=== PATIENT | female | born 1955 | race Caucasian/White ===

== ENCOUNTER 2020-03-01 07:26 | Emergency (ER) | payer MEDICARE, SELFPAY ==
--- NOTE | ~2020-03-01 | CT_ITS ---
EXAMINATION: CT brain wo con DATE: 03/01/2020 08:22 INDICATION: Dizziness. Lightheadedness. TECHNIQUE: Computed tomography (CT) of the head was performed without intravenous contrast. The dose- length product was 605.33 mGy-cm. The mA was adjusted according to patient size. Iterative reconstruc tion technique was employed. COMPARISON: CT dated 10/21/2013 FINDINGS: Normal brain parenchymal volume. No ventriculomegaly or midline shift. Basilar cisterns are patent. There is intracranial atherosclerosis. No acute intracranial hemorrhage, infarction, mass or mass effect. Normal smalls-white differentiation. Paranasal sinuses and mastoids are pneumatized. IMPRESSION: 1. No acute intracranial abnormality. Reviewed, dictated and finalized at location B.
--- NOTE | ~2020-03-01 | XR_ITS ---
XR chest 1V 03/01/2020 08:27 Indication: Dizziness. Nausea and vomiting. Procedure: AP view of the chest Comparison: 09/01/2016 Findings: Heart size normal. Pacemaker leads are stable. There is bibasilar atelectasis. No focal pne umonia, edema, pleural effusion or pneumothorax. Impression: 1: Bibasilar atelectasis. Reviewed, dictated and finalized at location B. Impression: 1: Bibasilar atelectasis.
[2020-03-01 07:30] VITALS: BP 194/115; PULSE 83; RESP 20; TEMP 36.6; O2SAT 97
[2020-03-01 08:00] VITALS: BP 146/108; PULSE 83; RESP 18; O2SAT 96
--- NOTE | 2020-03-01 08:06 | ECG_ITS ---
Measurements Intervals [place] Rate: 78 P: 53 NV: 207 QRS: -5 QRSD: 114 T: 49 QT: 375 QTc: 428 Interpretive Statements SINUS RHYTHM POSSIBLE LEFT ATRIAL ENLARGEMENT INCOMPLETE RIGHT BUNDLE BRANCH BLOCK LOW QRS VOLTAGE IN PRECORDIAL LEADS BASELINE ARTIFACT- V3 BORDERLINE ECG Electronically Signed On 03-01-2020 9:47:37 CDT by Pee Arteaga D.O.
--- NOTE | 2020-03-01 08:09 | ED.DIZZY ---
HPI - Dizziness General Chief Complaint: Dizziness Stated Complaint: dizziness, n/v Time Seen by Provider: 03/01/20 07:48 Source: patient Mode of arrival: ambulatory Limitations: no limitations History of Present Illness HPI Narrative: This patient is a 65 year old female with history of essential tremors who presents for evaluation of dizziness. She started taking Primidone for the first time Sunday Morning. Within a couple hours of taking medication, she developed vertigo with nausea and vomiting. She reports she continued to have vomiting all day Sunday. She was able to take zofran which help her nausea. She reports she also was having vivid nightmares while she was sleeping. She reports she kept feeling like she was falling when she was sleeping. She also reports pressure to left face. She states she felt off while she was walking. She has not taken the medication since Sunday. Related Data Home Medications Medication Instructions Recorded Confirmed acetaminophen [Tylenol Extra PRN 03/01/20 Strength] amlodipine 03/01/20 03/01/20 ergocalciferol (vitamin D2) 03/01/20 ezetimibe mg 03/01/20 lansoprazole 03/01/20 ondansetron HCl [Zofran] 03/01/20 primidone 03/01/20 valacyclovir 03/01/20 Allergies Allergy/AdvReac Type Severity Reaction Status Date / Time omeprazole Allergy Unknown Hives / Verified 03/01/20 07:49 Red Face sucralfate Allergy Unknown Hives / Verified 03/01/20 07:49 Red Face Tetanus Vaccines and Toxoid Allergy Unknown Hives / Verified 03/01/20 07:49 Red Face OMEPRAZOLE MAGNESIUM Allergy Unknown Hives / Uncoded 03/01/20 07:49 Red Face PANTOPRAZOLE SODIUM Allergy Unknown Hives / Uncoded 03/01/20 07:49 Red Face Review of Systems Review of Systems: All systems reviewed & are unremarkable except as noted in HPI and below Constitutional: Constitutional: Denies chills and Denies fever(s) Eyes: Eyes: Reports change in vision ENT: Reports vertigo, Reports otalgia and Reports headache(s) Gastrointestinal: Gastrointestinal: Reports nausea and Reports vomiting Neurologic: Reports vertigo and Reports headache(s) [facility] Past Medical History Medical History (Updated 03/01/20 @ 10:26 by Bertha Worrell MD) Essential tremor Pacemaker Vasovagal syncope Surgical History Surgical History (Updated 03/01/20 @ 10:23 by Bertha Worrell MD) Hx of cholecystectomy Social History Social History (Updated 03/01/20 @ 10:23 by Bertha Worrell MD) Smoking status: Never smoker Alcohol use details: rarely Substance use: never Exam Narrative: Exam Narrative: GENERAL: Well-appearing, well-nourished, and in no acute distress. HEAD: Normocephalic, atraumatic EYES: PERRLA and EOMI, conjunctiva clear without discharge, no nystagmus EARS: TM's clear bilaterally without erythema or dullness NOSE: Nares clear, no rhinorrhea or epistaxis THROAT:Mucous membranes moist, Oropharynx normal without erythema, exudate, peritonsillar swelling or fluctuance NECK: Supple, without lymphadenopathy or mass RESPIRATORY: No respiratory distress, Airway patent, Respirations non-labored, Clear to auscultation without rales, rhonchi or wheeze HEART: Regular rate and rhythm. No murmur heard. Normal peripheral pulses. ABDOMEN: Soft, nontender, nondistended, normal active bowel sounds. No masses. No rebound or guarding, No organomegaly. EXTREMITIES: No edema, normal strength with full range of motion. SKIN: Warm, dry, normal color without rash NEURO: Alert and oriented x3. CN 2-12 grossly intact. No focal deficits. PSYCH: Normal mood and affect. Neuro: General: patient oriented x3, moves all extremities, no meningeal signs, no focal motor deficits and CN's II-XI intact bilaterally Cranial nerves: Yes Nystagmus not present Motor exam (neuro): 5/5 motor strength present throughout Sensory Exam: normal sensation Coordination: [id number] test normal Cours
[2020-03-01 08:28] LABS: Basophils Absolute Auto 0.1 K/mm3 (0.0-0.1); Basophils Percent Auto 0.6 % (0.2-1.2); Eosinophils Absolute Auto 0.1 K/mm3 (0-0.3); Eosinophils Percent Auto 1.3 % (0-4.4); Hematocrit 41.4 % (37.0-47.0); Immature Granulocyte Absolute 0.03 K/mm3 (0.00-0.031); Immature Granulocyte Percent A 0.3 % (0-0.5); Lymphocytes Absolute Auto 3.27 K/mm3 (0.9-3.2); Lymphocytes Percent Auto 36.5 % (18.3-44.2); Mean Corpuscular HGB Conc 33.8 g/dl (32-36); Mean Corpuscular Hemoglobin 29.2 pg (26-34); Mean Corpuscular Volume 86.4 fl (80-100); Mean Platelet Volume 10.1 fl (7.4-10.4); Monocytes Absolute Auto 0.5 K/mm3 (0.1-0.6); Monocytes Percent Auto 5.4 % (2.6-8.5); Neutrophils Percent Auto 55.9 % (45.5-73.1); Platelet Count Result 284 k/mm3 (150-375); Red Blood Count 4.79 M/mm3 (4.2-5.4)
[2020-03-01 08:39] LABS: Anion Gap 9 mmol/L (8-16); Blood Urea Nitrogen 13 mg/dL (7-17); Carbon Dioxide 26 mmol/L (22-30); Chloride 104 mmol/L (98-107); Estimated CRCL calculation 39 ml/min; Estimated Glomerular Filt Rate 38; Glucose 86 mg/dL (65-105); Potassium 3.4 mmol/L (3.4-5.0); Sodium 139 mmol/L (137-145)
[2020-03-01 08:40] VITALS: BP 190/104; PULSE 71; RESP 14; O2SAT 96
[2020-03-01] MEDS: LACTATED RINGERS 1,000 ML 999 ML IV CONT (08:40)
[2020-03-01] MEDS: ONDANSETRON INJ 4 MG/2 ML VIAL IV PUSH (08:43)
[2020-03-01 08:44] LABS: Prothrombin Time 13.3 Seconds (11.1-14.7)
[2020-03-01] MEDS: MECLIZINE HCL 25 MG TABLET PO (08:44)
[2020-03-01 08:45] LABS: Partial Thromboplastin Time 27.5 SECONDS (22.3-36.8)
[2020-03-01 08:54] LABS: Troponin I < 0.012 ng/mL (0.000-0.034)
[2020-03-01 09:00] VITALS: BP 161/85; PULSE 70; RESP 16; O2SAT 95
[2020-03-01 09:28] LABS: Glucose Point of Care 81 (65-105)
[2020-03-01 10:00] VITALS: BP 181/88; PULSE 67; RESP 16; O2SAT 96
[2020-03-01 10:50] VITALS: BP 176/97; PULSE 75; RESP 16; O2SAT 96
== END 2020-03-01 10:50 | disposition home or self-care (01) ==
PROVIDERS: Emergency Provider General Practice; PCP Internal Medicine
DX: R42 Dizziness and giddiness (principal); T42.6X5A Adverse effect of other antiepileptic and sedative-hypnotic drugs, initial encounter; G25.0 Essential tremor; Z95.0 Presence of cardiac pacemaker; I45.10 Unspecified right bundle-branch block
CPT/HCPCS: 36415; 70450; 71045; 80048; 82948; 84484; 85025; 85610; 85730; 93005; 96361; 96374; 96375; 99284; A9270; J0131; J2405; J7120

== ENCOUNTER → 2020-03-29 10:34 | Outpatient (CLI) | payer MEDICARE, SELFPAY ==
--- NOTE | ~2020-03-29 | MM_ITS ---
EXAMINATION: MM screening [facility] BI w margarita HISTORY: Screening TECHNIQUE: Craniocaudal and mediolateral oblique 3-D tomosynthesis images were obtained and synthetic 2-D images were generated. CAD analysis was submitted and interpreted. COMPARISON: Comparison to multiple prior studies sequentially, with oldest reviewed study dated 07/11. BREAST PARENCHYMAL COMPOSITION: There are scattered areas of fibroglandular density. FINDINGS: There is no evidence of suspicious mass, calcification, or architectural distortion to sugg est malignancy in either breast. There has been no suspicious interval change. IMPRESSION: 1. No mammographic evidence of malignancy. 2. Recommend routine screening mammography in one year. BI-RADS Category 1: Negative Reviewed, dictated and finalized at location A.
== END ==
PROVIDERS: PCP Internal Medicine; Visit Provider Obstetrics & Gynecology Gynecology
DX: Z12.31 Encounter for screening mammogram for malignant neoplasm of breast (principal)
CPT/HCPCS: 77063; 77067

== ENCOUNTER → 2020-09-06 09:20 | Outpatient (CLI) | payer MEDICARE, SELFPAY ==
--- NOTE | ~2020-09-06 | XR_ITS ---
XR lumbar spine 2-3V DATE: 09/06/2020 09:41 INDICATION: Left sciatica TECHNIQUE: Standing AP and lateral and coned lateral lumbosacral views COMPARISON: None FINDINGS: Diffuse osteopenia. There is mild rotatory levoscoliosis of the lower thoracic and lumbar spine. No fracture or bone destruction is evident. The included lower thoracic and lumbar pedicles are intac t. There is mild degenerative disc disease at L1-2. There is mildly prominent degenerative disc disease with some eburnation and degenerative spurring an d loss of interspace height at L2-3, with associated mild retrolisthesis at L2-3. L3-4 and L4-5 and L5-S1 interspaces are well preserved. The sacroiliac joints appear normal. Surgical clips, right upper quadrant, consistent with cholecystectomy. IMPRESSION: Diffuse osteopenia Mild levoscoliosis Degenerative disc disease, most pronounced at L2-3, with associated mild retrolisthesis Reviewed, dictated and finalized at location B. IMPRESSION: Diffuse osteopenia Mild levoscoliosis Degenerative disc disease, most pronounced at L2-3, with associated mild retrol isthesis
== END ==
PROVIDERS: PCP Internal Medicine; Visit Provider Internal Medicine
DX: M54.42 Lumbago with sciatica, left side (principal); M85.88 Other specified disorders of bone density and structure, other site; M51.36 Other intervertebral disc degeneration, lumbar region
CPT/HCPCS: 72100

== ENCOUNTER → 2021-08-29 10:55 | Outpatient (CLI) | payer MEDICARE, SELFPAY ==
--- NOTE | ~2021-08-29 | MM_ITS ---
EXAMINATION: MM screening [facility] BI w margarita HISTORY: Screening mammogram TECHNIQUE: Craniocaudal and mediolateral oblique 3-D tomosynthesis images were obtained and synthetic 2-D images were generated. CAD analysis was submitted and interpreted. COMPARISON: 03/29/2020, 08/19/2018, 08/07/2012 BREAST PARENCHYMAL COMPOSITION: There are scattered areas of fibroglandular density. FINDINGS: There is no evidence of suspicious mass, calcification, or architectural distortion to sugg est malignancy in either breast. There has been no suspicious interval change. IMPRESSION: 1. No mammographic evidence of malignancy. 2. Recommend routine screening mammography in one year. BI-RADS Category 1: Negative Reviewed, dictated and finalized at location A.
--- NOTE | ~2021-08-29 | DEXA_ITS ---
Bone Density Report Name: SPARKLE SHERMAN Age: 66 Sex: Female Ethnicity: White Date of : 1955 Indication: postmenopausal osteoporosis; Referring Provider: KADI KINGSLEY Study: Bone densitometry was performed. Exam Date: August 29, 2021 Accession number: [id number] Bone Density: Region BMD T-score Z-score Classification AP Spine (L1-L4) 0.822 -2.0 0.0 Osteopenia Femoral Neck (Left) 0.634 -1.9 -0.2 Osteopenia Total Hip (Left) 0.703 -2.0 -0.5 Osteopenia Femoral Neck (Right) 0.590 -2.3 -0.6 Osteopenia Total Hip (Right) 0.653 -2.4 -1.0 Osteopenia Total Hip Mean 0.678 -2.2 -0.8 Osteopenia World Health Organization criteria for BMD impression classify patients as: Normal (T-score at or above -1.0), Osteopenia (T-score between -1.0 and -2.5), or Osteoporosis (T-score at or below -2.5). 10-year Fracture Risk(1): Major Osteoporotic Fracture 12% Hip Fracture 2.5% Reported Risk Factors: [place] (), Neck BMD=0.590, BMI=28.7 (1) FRAX(R) Version 3.08. Fracture probability calculated for an untreated patient. Fracture probability may be lower if the patient has received treatment. Previous Exams: Region Exam Age BMD T-score BMD Change BMD Change Date g/cm2 vs Baseline vs Previous AP Spine(L1-L4) 08/29/2021 66 0.822 -2.0 -0.119* 0.014 09/23/2018 63 0.808 -2.2 -0.133* -0.133* 07/11/2011 56 0.941 -1.0 Total Hip(Left) 08/29/2021 66 0.703 -2.0 -0.135* 0.010 09/23/2018 63 0.693 -2.0 -0.145* -0.145* 07/11/2011 56 0.838 -0.9 Total Hip(Right) 08/29/2021 66 0.653 -2.4 -0.125* 0.018 09/23/2018 63 0.635 -2.5 -0.143* -0.143* 07/11/2011 56 0.778 -1.3 *Denotes significance at 95% confidence level, LSC for AP Spine = 0.022 g/cm2, LSC for Total Hip = 0.027 g/cm2 Clinical Information Provided by Patient: Has used the following medications: Vitamin D Patient maximum height was 67 Menopause Age: 56 No regular weight bearing exercise Does not regularly consume dairy products Drinks caffeinated beverages Onset of menses at age 11 Number of children 2 Impression: The patient has low bone mass, based on the Right Total Hip T-score. The patient has an estimated ten-year risk of hip fracture of 2.5% and an estimated ten-year risk of major fracture of 12%, based on the WHO FRAX algorithm. No significant bone lo
== END ==
PROVIDERS: PCP Internal Medicine; Visit Provider Obstetrics & Gynecology Gynecology
DX: Z12.31 Encounter for screening mammogram for malignant neoplasm of breast (principal); Z78.0 Asymptomatic menopausal state; M81.0 Age-related osteoporosis without current pathological fracture; M85.88 Other specified disorders of bone density and structure, other site; M85.852 Other specified disorders of bone density and structure, left thigh; M85.851 Other specified disorders of bone density and structure, right thigh
CPT/HCPCS: 77063; 77067; 77080

== ENCOUNTER → 2022-09-27 13:16 | Outpatient (CLI) | payer MEDICARE, SELFPAY ==
--- NOTE | ~2022-09-27 | MM_ITS ---
EXAMINATION: MM screening [facility] BI w margarita HISTORY: Screening mammogram TECHNIQUE: Craniocaudal and mediolateral oblique 3-D tomosynthesis images were obtained and synthetic 2-D images were generated. CAD analysis was submitted and interpreted. COMPARISON: 08/29/2021, 03/29/2020, 08/2018 bilateral screening mammogram examinations BREAST PARENCHYMAL COMPOSITION: There are scattered areas of fibroglandular density. FINDINGS: Pacemaker device overlies left axillary region. There is no evidence of suspicious mass, ca lcification, or architectural distortion to suggest malignancy in either breast. There has been no poole spicious interval change. IMPRESSION: 1. No mammographic evidence of malignancy. 2. Recommend routine screening mammography in one year. BI-RADS Category 1: Negative Reviewed, dictated and finalized at location A.
== END ==
PROVIDERS: PCP Internal Medicine; Visit Provider Obstetrics & Gynecology Gynecology
DX: Z12.31 Encounter for screening mammogram for malignant neoplasm of breast (principal)
CPT/HCPCS: 77063; 77067

== ENCOUNTER 2023-07-06 16:46 | Emergency (ER) | payer MEDICARE, SELFPAY ==
[2023-07-06] VITALS (11 sets, daily range): BP systolic 173–197; BP diastolic 89–107; PULSE 84–89; RESP 17–18; TEMP 36.7; O2SAT 94–99
--- NOTE | ~2023-07-06 | XR_ITS ---
EXAMINATION: XR chest 1V portable INDICATION: Near syncope TECHNIQUE: Portable AP chest at 2040 hours COMPARISON: 03/01/2020 FINDINGS: The lungs are free of acute opacities. No pleural effusion or pneumothorax. The cardiomedia stinal silhouette is normal. A dual-lead cardiac pacemaker of the left chest wall ends with leads in expected locations. Surgical clips in the right upper quadrant are likely from prior cholecystectomy. IMPRESSION: 1. No acute cardiopulmonary abnormality. Reviewed, dictated and finalized at location F. ER OUT
--- NOTE | 2023-07-06 20:11 | ECG_ITS ---
Measurements Intervals [place] Rate: 87 P: 60 NM: 215 QRS: 4 QRSD: 105 T: 51 QT: 350 QTc: 423 Interpretive Statements SINUS RHYTHM WITH FIRST DEGREE AV BLOCK LEFT VENTRICULAR HYPERTROPHY BORDERLINE R WAVE PROGRESSION, ANTERIOR LEADS BASELINE ARTIFACT- II, III, AVR, AVL, AVF, V1-V2 BORDERLINE ECG COMPARED TO ECG 03/01/2020 07:45:59 FIRST DEGREE AV BLOCK NOW PRESENT Electronically Signed On 07-07-2023 8:10:05 [employer] by Pee Arteaga D.O.
[2023-07-06] MEDS: SODIUM CHLORIDE 0.9% IV 1,000 ML 999 ML IV CONT ×2 (20:23→21:55)
[2023-07-06 20:39] LABS: Basophils Absolute Auto 0.1 K/mm3 (0.0-0.1); Basophils Percent Auto 0.5 % (0.2-1.2); Eosinophils Percent Auto 0.3 % (0-4.4); Hematocrit 45.8 % (37.0-47.0); Hemoglobin 14.6 g/dL (12.0-15.0); Immature Granulocyte Absolute 0.05 K/mm3 (0.00-0.031); Immature Granulocyte Percent A 0.4 % (0-0.5); Lymphocytes Absolute Auto 2.02 K/mm3 (0.9-3.2); Lymphocytes Percent Auto 16.9 % (18.3-44.2); Mean Corpuscular HGB Conc 31.9 g/dl (32-36); Mean Corpuscular Volume 87.7 fl (80-100); Monocytes Absolute Auto 0.3 K/mm3 (0.1-0.6); Monocytes Percent Auto 2.6 % (2.6-8.5); Neutrophils Absolute Auto 9.5 K/mm3 (1.3-6.7); Neutrophils Percent Auto 79.3 % (45.5-73.1); Platelet Count Result 290 k/mm3 (150-375); Red Blood Count 5.22 M/mm3 (4.2-5.4); Red Cell Distribution Width 13.1 % (11.5-14.5)
[2023-07-06] MEDS: ONDANSETRON INJ 4 MG/2 ML VIAL (20:39)
--- NOTE | 2023-07-06 20:39 | PC.NURSE ---
this rn spoke with edp dr. león for a verbal order for iv zofran 4mg due to pt have nausea and vomitting. this rn used closed loop communication to confirm route/ dose/ pt/ medication/ time. edp dr. león verbally confirmed iv push 4mg of zofran.
[2023-07-06 20:51] LABS: INR 0.9; Prothrombin Time 12.5 Seconds (11.1-14.7)
[2023-07-06 20:52] LABS: Alanine Aminotransferase 19 U/L (6-35); Albumin Level 4.7 g/dL (3.5-5.1); Alkaline Phosphatase 104 U/L (38-126); Anion Gap 12 mmol/L (8-16); Aspartate Amino Transferase 22 U/L (14-36); Bilirubin,Total 1.5 mg/dL (0.2-1.3); Blood Urea Nitrogen 11 mg/dL (7-17); Calcium 10.2 mg/dL (8.4-10.2); Carbon Dioxide 22 mmol/L (22-30); Chloride 105 mmol/L (98-107); Estimated CRCL calculation 40 ml/min; Estimated Glomerular Filt Rate 40; Glucose 134 mg/dL (65-110); Lactic Acid Reflex 1.2 mmol/L (0.7-2.0); Magnesium 1.7 mg/dL (1.6-2.3); Sodium 139 mmol/L (137-145)
[2023-07-06 21:03] LABS: Troponin I < 0.012 ng/mL (0.000-0.034)
--- NOTE | 2023-07-06 21:08 | ED.SYNCOPE ---
HPI - Syncope General Chief Complaint: Syncope Stated Complaint: near syncope Time Seen by Provider: 07/06/23 20:08 Source: patient and family Limitations: no limitations History of Present Illness HPI narrative: Patient is a 68-year-old female presents to the emergency department accompanied by her for a near syncopal episode. Patient is a former nurse and nurse practitioner. Patient states around 3:30 p.m. she went outside to grab a box and it came back inside and was talking with her she started to feel lightheaded she is going to pass out so then she sat down and then laid down and this sensation lasted approximately 20 minutes with associated palpitations and nausea and she had a couple episodes of vomiting which appeared like stomach contents is still feeling nauseous however the lightheadedness and palpitations resolved after about 20 minutes. Patient has some slight mild back discomfort when she was feeling this way that has since resolved and not returned. Patient admits to checking her blood pressure when this was going on and was 190/140. Patient is to history of syncope for which she had a pacemaker [place] [address] Barclay who she had an appointment with on Sunday and the pacemaker was placed for ?swallow syncope? however over the past 2-3 years had been noticing some abnormal rhythms presenting in her pacemaker which she says are ventricular and admits to PVCs addition to SVT. Patient was started on metoprolol 1.5 years ago low-dose 25 mg extended release in the morning. Patient is to having a [employer]onic dual chamber pacemaker. Patient denies any injuries. Patient denies any diarrhea, melena, hematochezia, dysuria, hematuria, vaginal bleeding, hematemesis, chest pain, difficulty breathing, abdominal pain, numbness, weakness, vision changes. Patient denies history of blood clots or unilateral lower extremity swelling. Patient admits to being slightly dehydrated. Patient is to recent illness in which she had RSV diagnosed on and is just not getting resolution of the congestion that she was having with it. Related Data Home Medications Medication Instructions Recorded Confirmed acetaminophen 500 mg tablet PRN Pain 03/01/20 (Tylenol Extra Strength) amlodipine 2.5 mg tablet 03/01/20 03/01/20 ergocalciferol (vitamin D2) 1,250 03/01/20 mcg (50,000 unit) capsule ezetimibe 10 mg tablet mg 03/01/20 lansoprazole 30 mg capsule,delayed 03/01/20 release ondansetron HCl 4 mg tablet 03/01/20 (Zofran) primidone 50 mg tablet 03/01/20 valacyclovir 500 mg tablet 03/01/20 Allergies Allergy/AdvReac Type Severity Reaction Status Date / Time omeprazole Allergy Unknown Hives / Verified 07/06/23 20:23 Red Face sucralfate Allergy Unknown Hives / Verified 07/06/23 20:23 Red Face Tetanus Vaccines and Toxoid Allergy Unknown Hives / Verified 07/06/23 20:23 Red Face OMEPRAZOLE MAGNESIUM Allergy Unknown Hives / Uncoded 07/06/23 16:46 Red Face PANTOPRAZOLE SODIUM Allergy Unknown Hives / Uncoded 07/06/23 16:46 Red Face Review of Systems Review of Systems: A 10 system review of systems was completed on the patient and is negative except for what is stated in the HPI. Nursing and ancillary documentation was reviewed. [facility] Past Medical History Medical History (Updated 07/06/23 @ 23:55 by Kamron Zambrano DO) Essential tremor Pacemaker Vasovagal syncope Surgical History Surgical History (Updated 03/01/20 @ 10:23 by Bertha Worrell MD) Hx of cholecystectomy Social History Social History (Updated 03/01/20 @ 10:23 by Bertha Worrell MD) Smoking status: Never smoker Alcohol use details: rarely Substance use: never Comments At time of signature, I have reviewed and agree with nursing past medical, surgical, social and family history unless otherwise noted. Please see the nursing chart for further information. There is no relevant f
[2023-07-06 21:23] LABS: Thyroid Stimulating Hormone Reflex 0.386 uIU/mL (0.465-4.68)
[2023-07-06 21:52] LABS: Appearance Urine Clear (Clear); Bacteria Urine None Seen /hpf; Bilirubin Urine Negative (Negative); Blood Urine Negative (Negative); Color Urine Yellow (Yellow); Glucose Urine UA Negative (Negative); Ketones Urine Negative (Negative); Leukocyte Esterase Ur Negative LEU/UL (Negative); Nitrate Urine Negative (Negative); Non Pathogenic Casts 0-2; Protein Urine Trace mg/dL (Negative); RBC Urine 0-2 /hpf (0-2); Specific Grav Ur 1.009 (1.001-1.035); Squamous Epithelial Cell Urine None seen /hpf (Few); Urobilinogen Urine 0.2 mg/dL (<2.0); WBC Urine 0-5 /hpf
[2023-07-06 21:53] LABS: Add Urine Microscopic? YES
--- NOTE | 2023-07-06 21:54 | PC.NURSE ---
EDP Dr. Zambrano ordered total 8mg zofran IVP for pt.
[2023-07-06] MEDS: ONDANSETRON INJ 4 MG/2 ML VIAL 8 MG IV PUSH (21:55)
[2023-07-06 22:01] LABS: Free T4 Free Thyroxine Reflex 1.67 ng/dL (0.78-2.19)
== END 2023-07-07 00:03 | disposition home or self-care (01) ==
PROVIDERS: Emergency Provider Student in an Organized Health Care Education/Training Program; PCP Internal Medicine
DX: R55 Syncope and collapse (principal); Z95.0 Presence of cardiac pacemaker; I44.0 Atrioventricular block, first degree; I51.7 Cardiomegaly; R94.31 Abnormal electrocardiogram [ECG] [EKG]
CPT/HCPCS: 36415; 71045; 80053; 81001; 83605; 83735; 84439; 84443; 84480; 84484; 85025; 85610; 85730; 93005; 96361; 96374; 99284; J2405; J7030

== ENCOUNTER 2024-04-28 13:35 | Emergency (ER) | payer MEDICARE, SELFPAY ==
--- NOTE | ~2024-04-28 | XR_ITS ---
XR ankle LT min 3V Ordering provider: Sree King MD History: . fall INJ LAT MALLEOLAR SWELLING NOTED PAIN, LMT ROM . Comparison: None. FINDINGS: BONES: Fracture of the medial and lateral malleoli without displacement. Lucency seen in the dome of the talus most likely degenerative. JOINT SPACES: The ankle mortise is normal. SOFT TISSUES: Soft tissue swelling is seen over the medial and lateral malleoli. Calcaneal spur. IMPRESSION: Bimalleolar fracture. Reviewed, dictated and finalized at location A. IC RELATIONS ACCOUNT SUPERVISOR IMPRESSION: Bimalleolar fracture.
[2024-04-28 13:40] VITALS: BP 179/91; PULSE 72; RESP 18; TEMP 36.6; O2SAT 97
--- NOTE | 2024-04-28 13:46 | ED_ITS ---
HPI - Fall General Chief Complaint: Fall Stated Complaint: ankle injury Time Seen by Provider: 04/28/24 13:41 Source: patient Mode of arrival: ambulatory Limitations: no limitations History of Present Illness HPI Narrative: Patient is a 69-year-old female who presents the ED with report of left ankle pain. Patient reports she tripped over scale at [facility] and fell, rolling her left ankle. She complains of severe pain to her left lateral ankle with swelling. Unable to bear any weight. Denies any other significant injury. Denies head injury or LOC. Related Data Home Medications Medication Instructions Recorded Confirmed acetaminophen 500 mg tablet PRN Pain 03/01/20 (Tylenol Extra Strength) amlodipine 2.5 mg tablet 03/01/20 03/01/20 ergocalciferol (vitamin D2) 1,250 03/01/20 mcg (50,000 unit) capsule ezetimibe 10 mg tablet mg 03/01/20 lansoprazole 30 mg capsule,delayed 03/01/20 release ondansetron HCl 4 mg tablet 03/01/20 (Zofran) primidone 50 mg tablet 03/01/20 valacyclovir 500 mg tablet 03/01/20 Allergies Allergy/AdvReac Type Severity Reaction Status Date / Time omeprazole Allergy Unknown Hives / Verified 07/06/23 20:23 Red Face sucralfate Allergy Unknown Hives / Verified 07/06/23 20:23 Red Face Tetanus Vaccines and Toxoid Allergy Unknown Hives / Verified 07/06/23 20:23 Red Face OMEPRAZOLE MAGNESIUM Allergy Unknown Hives / Uncoded 07/06/23 16:46 Red Face PANTOPRAZOLE SODIUM Allergy Unknown Hives / Uncoded 07/06/23 16:46 Red Face Review of Systems Review of Systems: All systems reviewed & are unremarkable except as noted in HPI. All systems reviewed & are unremarkable except as noted in HPI and below PMFSH Past Medical History Medical History Essential tremor Pacemaker Vasovagal syncope Surgical History Surgical History Hx of cholecystectomy Social History Social History Smoking status: Never smoker Alcohol use details: rarely Substance use: never Exam Narrative: GENERAL: Well appearing, well-nourished, non-toxic, in no acute distress. HEAD: Normocephalic, atraumatic. RESPIRATORY: Airway patent, respirations nonlabored. CARDIOVASCULAR: Regular rate and rhythm without murmurs, rubs, or gallops. Pedal pulses intact and easily palpable MUSCULOSKELETAL: Moves all extremities. Limited range of motion of left ankle due to pain. Moderate swelling to left lateral ankle with focal tenderness. S ensation intact. SKIN: Warm, dry, normal color. NEURO: A&O X3. Speech clear. somewhat tremulous in extremities which patient reports is chronic. PSYCHIATRIC: mildly anxious. Normal interaction. Course Vital Signs Vital signs: Vital Signs Temperature 97.8 F 04/28/24 13:40 Pulse Rate 72 04/28/24 13:40 Respiratory Rate 18 04/28/24 13:40 Blood Pressure 179/91 H 04/28/24 13:40 Pulse Oximetry 97 04/28/24 13:40 Oxygen Delivery Room Air 04/28/24 13:40 Temperature 97.8 F 04/28/24 13:40 Pulse Rate 72 04/28/24 13:40 Respiratory Rate 18 04/28/24 13:40 Blood Pressure 179/91 H 04/28/24 13:40 Pulse Oximetry 97 04/28/24 13:40 Oxygen Delivery Room Air 04/28/24 13:40 MDM - Fall MDM Narrative Medical decision making narrative: Patient?s injury is consistent with musculoskeletal etiology. No signs of neurologic or vascular compromise on physical examination. Good pulses. Sensation intact. Compartments are soft without signs of compartment syndrome. XR of left ankle showing bimalleolar fx. Pain is consistent with exam and injury. Patient placed in short leg posterior splint. Given crutches. Patient is felt to be stable for discharge home and further outpatient management and treatment. Will d/c to f/u with ortho as outpatient. Discussed rice therapy, strict return precautions. Oxycodone sent to pharmacy. Patient advised to also utilize Tylenol for pain. D/C in stable condition. Medical Records Attestation: I reviewed the patient's medical records. Imaging Data Attestation: I personally reviewed and interpreted this imaging study as follows: Radiologist's impression: ITS Impressions Ankle X-Ray 04/28/24 14:20 IMPRESSION: Bimalleolar fracture. Discharge Plan Discharge Clinical Impression: Fall from ground level Bimalleolar fracture of left ankle Qualifiers: Encounter type: initial encounter Fracture type: closed Qualified Code(s): S82.842A - Displaced bimalleolar fracture of left lower leg, initial encounter for closed fracture Patient Disposition: Home, Self-Care Condition: Stable Instructions: Antibiotic Form, Ankle Fracture (ED), Crutch Instructions (ED), Splint Care (ED), P.R.I.C.E. Treatment (ED) Additional Instructions: Wear splint until seen by orthopedics. Call office today or first thing tomorrow to make follow-up appointment for further evaluation. Avoid weight- bearing, utilize crutches or walker for assistance with walking. Recommend frequent icing to ankle, elevation of leg, Tylenol as needed for pain. Oxycodone as needed for more severe pain. Utilize Zofran as needed for nausea associated with pain medicine. Return to the ED if you experience worsening or severe pain, recurrent injury, numbness, or any other symptoms of concern. Prescriptions: New oxycodone 5 mg tablet 5 mg PO Q6H PRN (Reason: pain) Qty: 20 0RF No Action primidone 50 mg tablet amlodipine 2.5 mg tablet valacyclovir 500 mg tablet lansoprazole 30 mg capsule,delayed release(DR/EC) ergocalciferol (vitamin D2) 1,250 mcg (50,000 unit) capsule ezetimibe 10 mg tablet ondansetron HCl [Zofran] 4 mg Tablet acetaminophen [Tylenol Extra Strength] 500 mg Tablet PRN (Reason: Pain) meclizine 25 mg tablet 25 mg PO TID PRN (Reason: dizziness) Qty: 14 0RF ondansetron HCl 4 mg tablet 4 mg PO Q8H PRN (Reason: nausea and vomiting) Qty: 10 0RF Follow-up/Referrals: Josué Webster MD [Physician] - (ORTHOPEDICS) Raghu,Nj Luna MD [Primary Care Provider] - Time of Disposition: 14:52
[2024-04-28] MEDS: HYDROcodone/acetaminophen (*CRX) 5-325 MG TABLET 1 TAB PO (13:55)
--- NOTE | 2024-04-28 14:40 | PC.NURSE ---
call to radiology to get disc with imaging at this time.
== END 2024-04-28 14:55 | disposition home or self-care (01) ==
PROVIDERS: Emergency Provider Physician Assistant; PCP Internal Medicine
DX: S82.842A Displaced bimalleolar fracture of left lower leg, initial encounter for closed fracture (principal); W18.30XA Fall on same level, unspecified, initial encounter; Z95.0 Presence of cardiac pacemaker
CPT/HCPCS: 29515; 73610; 99284; A9270

== ENCOUNTER 2024-12-03 01:59 | Day surgery (SDC) | payer MEDICARE, SELFPAY ==
[2024-12-02 13:07] VITALS: BMI 27.8
--- OUTSIDE RECORDS SUMMARY | 2024-12-03 02:01 | XMS_ITS | Clinical Summary ---
Author Organization [facility] [address] [facility] [address] Address [address] [place] [address] Care Team Providers Care Congressional Representative Name Role Phone Nj Krishnamurthy MD Primary Care Provider Reece Carrasco MD Unavailable [phone] Susy Laura Unavailable [phone] Allergies Active Allergy Reactions Criticality Noted Date Comments Omeprazole Angioedema,Edema High Reaction: edema, , Reaction: Angioedema, , Reaction: Angioedema, , Pantoprazole Shortness of breath High Reaction: Bronchospasm, Zedcjrr-Fuz-Xbe Reductase Inhibitors Joint pain Low 07/18/2022 Tetanus And Diphtheria Toxoids Rash Medium Tetanus Vaccines And Toxoid Rash Medium Medications diclofenac sodium (VOLTAREN) 1 % gel Apply 2 g topically continuously as needed Active amLODIPine (NORVASC) 5 mg tablet Take 1 tablet (5 mg total) by mouth daily Note lower dose 90 tablet 3 Active HYDROcodone-aceta minophen (NORCO) 5-325 mg per tabletIndications :Pain Take 1 tablet by mouth every 4 (four) hours as needed for pain 30 tablet Active Additional Information Patient not taking.Reported on 06/12/2024 aspirin 81 mg chewable tablet Take 1 tablet (81 mg total) by mouth 2 (two) times a day for 14 days 28 tablet Active Additional Information Patient not taking.Reported on 08/04/2024 lansoprazole (PREVACID) 30 mg capsule Take 1 capsule (30 mg total) by mouth daily Active furosemide (LASIX) 20 mg tabletIndications :Bilateral lower extremity edema TAKE 1 TABLET (20 MG TOTAL) BY MOUTH DAILY NEEDED (SWELLING). 90 tablet 1 Active Additional Information Patient not taking.Reported on 08/04/2024 ondansetron ODT (ZOFRAN-ODT) 4 mg disintegrating tablet Take 1 tablet (4 mg total) by mouth every 8 (eight) hours as needed for nausea or vomiting 20 tablet 024 Active Additional Information Patient not taking.Reported on 08/04/2024 ezetimibe (ZETIA) 10 mg tablet TAKE 1 TABLET DAILY 100 tablet 1 025 Active Additional Information Patient not taking.Reported on 08/04/2024 metoprolol XL (TOPROL-XL) 50 mg extended release tablet TAKE 1 TABLET DAILY (HIGHERDOSE) 100 tablet 1 025 Active GaviLyte-G 236-22.74-6.74 -5.86 gram solution Active escitalopram (LEXAPRO) 10 mg tablet TAKE 1 TABLET DAILY 90 tablet 2 025 Active ergocalciferol (VITAMIN D) 50,000 unit capsule TAKE 1 CAPSULE BY MOUTH ONE TIME PER WEEK 4 capsule 1 025 Active ergocalciferol (VITAMIN D) 50,000 unit capsule TAKE 1 CAPSULE BY MOUTH ONE TIME PER WEEK 4 capsule 1 025 2024 Discontinued Active Problems Problem Noted Date Diagnosed Date Weight loss 07/03/2024 H/O acute pancreatitis 07/03/2024 Iron deficiency anemia 07/03/2024 Overweight with body mass in dex (BMI) of 27 to 27.9 in adult 05/13/2024 Assessment & Plan (05/13/2024 1:30 PM BELT SPLICER): Wt Readings from Last 3 Encounters: 05/03/24 80.3 kg (177 lb) 05/02/24 82.3 kg (181 lb 6.4 oz) 04/11/24 80.7 kg (178 lb) There is no height or weight on file to calculate BMI. -Stable, at goal of <30 bmi -Discussed recommendations for exercise at least 30 minutes moderate to vigorous exercise as tolerated most days of the week. (minimum 150 minutes weekly) -Discussed importance of well-balanced diet Abdominal pain 05/04/2024 Gastroenteritis 05/04/2024 Acute pancreatitis, unspecif ied complication status, unspecified pancreatitis type 05/03/2024 Assessment & Plan (07/03/2024 3:45 PM BELT SPLICER): The patient presents to the GI clinic in post hospitalization follow-up after recently being hospitalized for acute pancreatitis following lower extremity surgery that was felt to be medication/anesthesia related. Will refer patient to interventional GI for an EUS now that her pancreas has cooled off to ensure no underlying pancreatic lesion serving as a nidus. With her weight loss and iron deficiency anemia - will proceed with an EGD/colonoscopy as the next step. I have explained the technique, benefits, alternatives, and the risks to the patient, including bleeding, perforation, infection, missed lesions, as well as the adverse effects possible with sedation. The patient is aware and informed of these risks as well as farrah-procedural instructions and is willing to proceed. Interestingly/incidentally, RUQ ultrasound suggested liver cirrhosis although this was not seen on CT and there are no symptoms/signs of portal hypertension. Will proceed with a liver fibroscan as the next step in evaluation. Assessment & Plan (05/14/2024 4:52 PM BELT SPLICER): -acute, resolving -patient was recently hospitalized at [facility] from 05/03 to 05/08 -no clear etiology was noted for the cause of patient's pancreatitis; will have follow up appointment with GI in June -patient's symptoms improved with bowel rest and fluid resuscitation -today in office patient reports she was feeling better, but does still have some abdominal tenderness -encourage patient to maintain adequate hydration -repeat CMP to evaluate sodium and potassium -continue current treatment plan with specialist S/P ORIF (open reduction internal fixation) donald barrios 05/02/2024 Assessment & Plan (05/19/2024 1:52 PM BELT SPLICER): Patient is doing well overall. X-rays were reviewed with the patient today in clinic and demonstrate hardware in good alignment without apparent complication. Patient's pain is under control, pain medication not refilled today. No evidence of infection of the surgical site. Sutures were removed today in clinic and Steri-Strips applied. Patient will continue to keep the surgical site clean and dry for 2 more weeks and then may start getting it wet in the shower. Signs of infection were reviewed with the patient including increased swelling and erythema along the surgical site, purulent drainage from the surgical site, fever, chills and they will notify us they develop any of these signs. Discussed with the patient they need to remain nonweightbearing until their next follow-up appointment. She will follow up in 4 weeks for x-rays and further evaluation with Dr. Li. Expressed understanding and agreement with the plan. Assessment & Plan (05/14/2024 4:57 PM BELT SPLICER): -acute -associated with left ankle fracture -underwent surgery on 05/02 which surgery was successful, but patient developed acute pancreatitis 1 day later -patient was currently in a boot and utilizing a scooter -continue current treatment plan with specialist Closed bimalleolar fracture of left ankle 2023 NSVT (nonsustained ventricular tachycardia) 03/19 Stage 3b chronic kidney disease 07/24/2023 Otalgia 07/10/2023 Assessment & Plan (07/11/2023 8:51 AM BELT SPLICER): Acute problem-stable OTC Tylenol as directed for discomfort Ordered covid, flu a/b POC- negative results Continue to monitor Dizziness 07/10/2023 Assessment & Plan (07/11/2023 9:00 AM BELT SPLICER): Acute problem- this is a new problem-patient seen in ED for dizziness Patient discharge ppwrk showed meclizine and zofran was ordered, however patient states she never received any medications or prescriptions to be filled Ordered meclizine 12.5 mg-take 1 tablet tid prn Ordered zofran 4 mg ODT- place 1 tablet under the tongue every 8 hours prn Patient educated on medications and side effects Stay hydrated- drink water Change positions slowly Continue to monitor Close exposure to COVID-19 virus 07/10/2023 Assessment & Plan (07/11/2023 8:55 AM BELT SPLICER): Acute problem- Patient post RSV and unsure if she had been in close contact with covid virus- was in the ED recently Ordered covid, flu a/b POC- negative results Continue to monitor Fatigue 07/10/2023 Assessment & Plan (07/11/2023 8:53 AM BELT SPLICER): Acute problem-poorly controlled- this is likely related to post RSV infection 3 weeks ago OTC Tylenol as directed for discomfort Ordered covid, flu a/b POC- negative results Continue to monitor Push fluids-water, less tea and coffee Encounter for follow-up exam ination after completed treatment for conditions other than malignant neoplasm 07/10/2023 Assessment & Plan (07/11/2023 8:54 AM BELT SPLICER): I personally reviewed H and P documentation, labs, ECG tracing obtained at [facility] Emergency room via paperwork brought in by the patient for this visit. Paperwork scanned into patient's EMR, please see chart for full report. 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 DOI 01/18/2011. Carelink remote @ Q6 mo & office pacer check Q1 yr-per pt request Assessment & Plan (07/11/2023 8:49 AM BELT SPLICER): Pacemaker present Follow up with cardiology as scheduled for routine device check Herpes simplex virus (HSV) infection 11/01/2013 Overview (09/20/2016): HERPES SIMPLEX NOS Gastroesophageal reflux disease 11/01/2013 Overview (09/22/2016): ESOPHAGEAL REFLUX Benign hypertension 05/20/2010 Overview (09/22/2016): Benign Hypertension Assessment & Plan (07/11/2023 9:01 AM BELT SPLICER): Chronic problem- poorly controlled BP this visit 151/100, rechecked after 10 minute rest 160/90-remained elevated This is managed by cardiology Continue metoprolol 25 mg daily Continue amlodipine 5 mg- will increase to 2 tablets (10 mg) daily to help lower BP Follow up with pcp in 2 weeks for HTN- bring bp log to visit Follow up with [employer] as scheduled-sooner prn Resolved Problems Problem Noted Date Diagnosed Date Resolved Date Dyslipidemia 07/07/2016 01/11/2022 Overview (09/21/2016): Mixed dyslipidemia Depression 11/01/2013 06/24/2019 Overview (09/22/2016): DEPRESSIVE DISORDER NEC Encounters Date Type Department Care Team Description 11/26/2024 Telephone [facility] [address] [facility] [address] [place] [phone] Reece Carrasco MD 11/06/2024 Telephone [facility]iology [address] [place] [address] [place] [phone] Reece Carrasco MD 11/05/2024 9:00 AM CDT Ancillary Procedure [facility] [address] [place] [address] [place] [phone] Deglutition syncope (Primary Dx); Presence of cardiac pacemaker; SSS (sick sinus syndrome) ([facility]) 11/04/2024 Telephone [facility] [address] [place] [address] [place] [phone] Reece Carrasco MD 09/24/2024 10:30 AM CDT Ancillary Procedure [facility] [address] [facility] [address] [place] [phone] SSS (sick sinus syndrome) (HCC); Presence of cardiac pacemaker 09/24/2024 Orders Only [facility]iology [address] [place] [address] [address] [place] [phone] Reece Carrasco MD Presence of cardiac pacemaker (Primary Dx); SSS (sick sinus syndrome) (HCC) 09/23/2024 Telephone [facility] [address] [place] [address] [place], [place] [address] [address] Reece Carrasco MD 09/10/2024 10:19 AM CDT - 09/10/2024 11:59 PM CDT Hospital Encounter [facility] [address] [place] [phone] S/P ORIF (open reduction internal fixation) fracture Discharge Disposition: Discharge to home or self care 09/10/2024 10:15 AM CDT Office Visit [facility] [address] [place] [phone] Chris Li DO S/P ORIF (open reduction internal fixation) fracture (Primary Dx) from Last 3 Months Immunizations Immunization Administration Dates Next Due Influenza, Quad, Adjuvantate d, Intramuscular 03/20/2022 Influenza, Quadrivalent, Hig h Dose, Preservative Free, Intrr 04/11/2023,03/17/2021,03/23/2020 Influenza, Quadrivalent, Spl it, Preservative Free, Intramuscular 03/17/2013 Influenza, Split 04/14/2010,03/21/2009 Influenza, Trivalent, High D ose, Split, Preservative Free, Intramuscular 03/28/2019,04/15/2018 Influenza, Trivalent, IM (MDV) 03/28/2014,2012 Influenza, Trivalent, Preser vative Free, Intramuscular 04/25/2016,06/06/2015 Influenza, Trivalent, Split, Preservative Free, Intradermal 06/07/2015 Influenza, Unspecified 03/05/2024(Deferr ed: Patient Refused),07/10/2023(Deferred: Patient Refused),02/22/2021(Deferred: Patient Refused),02/17/2020(Deferred: Patient Refused) Pneumococcal Conjugate PCV 13 01/29/2018 Pneumococcal Polysaccharide PPV23 03/28/2019 ZOSTER Recombinant 07/19/2019,02/26/2019 Surgical History Surgery Date Site/Laterality Comments CHOLECYSTECTOMY 06/18/1998 - 06/17/1999 Cholecystectomy CARDIAC PACEMAKER PLACEMENT 06/18/2010 - 06/17/2011 Cardiac pacemaker-medtronic left upper chest TONSILLECTOMY tonsillectomy CARDIAC PACEMAKER PLACEMENT Cardiac pacemaker COLONOSCOPY ESOPHAGOGASTRODUODENOSCOPY BRONCHOSCOPY UPPER GASTROINTESTINAL ENDOSCOPY ANKLE ARTHROPLASTY Left Medical History Medical History Date Comments Hx Other Medical Hx Deglutition syncope Hypertension Hypertension Gastroesophageal reflux disease GERD Anxiety disorder anxiety Hx Other Medical brochospasm/ast hma Hx Other Medical er:vertigo; Com ments: LNP 07/07/2014 - Osteoporosis Hypercholesteremia Cancer (HCC) Gastric reflux Migraines Anesthesia complication after br onchoscopy had bronchospasm and had to reintubated her per patient Pacemaker medtronic- left upper chest Essential tremor Seasonal allergies Stage 3 chronic kidney disease (HCC) Basal cell carcinoma nose and ne ck- removed Closed bimalleolar fracture of left ankle has boot Uses wheelchair Wears glasses Dental root implant present uppe r - left Primary osteoarthritis of left knee Cirrhosis (HCC) Syncope PVC's (premature ventricular contractions) Pancreatitis Arrhythmia Family History Medical History Relation Name Comments Hypertension Father Surinder Hypertension; Stroke Father Surinder Stroke; Coronary artery disease Mother Jared carbajal artery disease; Hypertension Mother Jared Hypertension; Heart disease Other Relation Name Status Comments Father Surinder Mother Jared Other Social History Tobacco Use Types Packs/Day Years Used Date Smoking Tobacco: Never Smokeless Tobacco: Never Tobacco Cessation:Counseling Given: Not Answered Alcohol Use Standard Drinks/Week Comments Yes 0 (1 standard drink = 0.6 oz pur e alcohol) 3 times in a year maybe [employer] Utilities Answer Date Recorded In the past 12 months has [employer], gas, oil, or water Servoy threatened to shut off services in your home? No 05/05/2024 Social Connection and Isolat ion Panel [NHANES] Answer Date Recorded In a typical week, how many times do you talk on the phone with family, friends, or neighbors? More than three times a week 05/09/2024 How often do you get togethe r with friends or relatives? More than three times a week 05/09/2024 How often do you attend chur ch or sikh services? More than 4 times per year 05/09/2024 Do you belong to any clubs o r organizations such as spiritism groups, unions, fraternal or athletic groups, or school groups? Yes 05/09/2024 How often do you attend meet ings of the clubs or organizations you belong to? 1 to 4 times per year 05/09/2024 Are you , , di vorced, , never , or living with a partner? 05/09/2024 AUDIT-C Answer Date Recorded Q1: How often do you have a drink containing alcohol? Never 07/28/2024 Q2: How many drinks containi ng alcohol do you have on a typical day when you are drinking? Patient does not drink Q3: How often do you have si x or more drinks on one occasion? Never 07/28/2024 Overall Financial Resource Strain (CARDIA) Answe r Date Recorded How hard is it for you to pa y for the very basics like food, housing, medical care, and heating? Not hard at all 05/05/2024 PHQ-2 Answer Date Recorded PHQ-2 Total Score (If total score is 3 or more points, staff should administer the PHQ-9) 0 05/13/2024 Hunger Vital Sign Answer Date Recorded Within the past 12 months, y ou worried that your food would run out before you got the money to buy more. Never true 05/05/20 24 Within the past 12 months, t he food you bought just didn't last and you didn't have money to get more. Never true 05/05/2024 PRAPARE - Transportation Answer Date Re corded In the past 12 months, has l ack of transportation kept you from medical appointments or from getting medications? No 04/19 In the past 12 months, has l ack of transportation kept you from meetings, work, or from getting things needed for daily living? No 05/09/2024 Housing Stability Vital Sign Answer Ramírez e Recorded In the last 12 months, was t here a time when you were not able to pay the mortgage or rent on time? No 05/05/2024 In the past 12 months, how m any times have you moved where you were living? 0 05/05/2024 At any time in the past [address] [facility], were you homeless or living in a fci (including now)? No 05/05/2024 Personal Safety Answer Date Recorded Have you ever been in or are you currently in a harmful physical or emotional relationship or is someone making you feel afraid or unsafe? Denies 08/04/2024 Comments No Sex and Gender Information Value Date Recorded Sex Assigned at Not on file Legal Sex Female 7:39 PM BELT SPLICER Gender Identity Female 04/29/2021 8:18 AM BELT SPLICER Sexual Orientation Straight 04/29/2021 8: 18 AM BELT SPLICER Obstetrics History Last Filed Vital Signs Vital Sign Reading Time Taken Comments Blood Pressure 145/88 08/04/2024 2:50 PM BELT SPLICER Pulse 71 08/04/2024 2:50 PM BELT SPLICER Temperature 36.5 C (97.7 F) 08/04/2024 2:32 PM BELT SPLICER Respiratory Rate 14 08/04/2024 2:50 PM BELT SPLICER Oxygen Saturation 98% 08/04/2024 2:50 PM BELT SPLICER Inhaled Oxygen Concentration - - Weight 72.6 kg (160 lb) 08/04/2024 12:53 PM BELT SPLICER Height 170.2 cm (5' 7) 08/04/2024 12:53 PM BELT SPLICER Body Mass Index 25.06 08/04/2024 12:53 PM BELT SPLICER Plan of Treatment Health Maintenance Due Date Last Done Comments DTaP/Tdap/Td Vaccine (1 - Tdap) 02/13/1966 Hepatitis B Screening 1971 Osteoporosis Screening-Bone Density Scan 08/30/2023 08/29/2021, 09/23/2018 Breast Cancer Screening-Mammogram 09/28/2023 09/27/2022, 08/29/2021, 03/29/2020, Additional history exists Covid-19 Vaccine (2023-2 5 season) 2024 07/11/2021, 10/03/2020, 09/12/2020 Influenza Vaccine (Season Ended) 2025 04/11/2023, 03/20/2022, 03/17/2021, Additional history exists Well Visit 65+ 03/05/2025 03/05/2024, 02/16, 02/28/2022, Additional history exists Depression Screening 05/13/2025 05/13/2024, 03/05/2024, 07/24/2023, Additional history exists Fall Risk Assessment 07/22/2025 07/22/2024, 05/13/2024, 03/05/2024, Additional history exists Colon Cancer Screening-Colonoscopy 08/04/2034 08/04/2024, 04/23/2018, 04/23/2018, Additional history exists Pneumococcal vaccine 65+ Completed 03/28/2019, 01/16 Zoster Vaccine Completed 07/19/2019, 02/26/2019 Hepatitis C Screening Completed 05/08/2024 Colon Cancer Screening-CT Colonography Discontinued 08/04/2024, 04/23/2018, 04/23/2018, Additional history exists Colon Cancer Screening-DNA Stool Discontinued 08/04/2024, 04/23/2018, 04/23/2018, Additional history exists Colon Cancer Screening-FIT Discontinued 08/04, 04/23/2018, 04/23/2018, Additional history exists Colon Cancer Screening-Sigmoidoscopy Discontinued 08/04/2024, 04/23/2018, 04/23/2018, Additional history exists Medical Devices Implanted Type Area Sucker Machine Operator Device Identifier Shelf Expiration Date Model / Serial / Lot Pacemaker- 1 Implanted: 011 (Quantity not on file) Pacemaker Chest Medtronic Sinus Node Dysfunction VERSA [id number] / [id number] / Synthes 06/20 Tubular Plate Four Hole Lcp Plate Implanted:Qty: 1 on 05/02/2024 by Chris Li DO at [facility] Plate Left: Ankle Synthes 241.341 / 241.341 / Synthes Lcp Combi 73mm 3 Hole Fibula Left Distal Lateral Contour Plate 137 - [id number] Implanted:Qty: 1 on 05/02/2024 by Chris Li DO at [facility] Plate Left: Ankle Synthes I .13 7 / / Synthes 3.5mm 6mm 30mm 2.5mm Self Tap Small Hexagonal Socket Low Profile 204.830 - [id number] Implanted:Qty: 1 on 05/02/2024 by Chris Li DO at [facility] Screw Left: Ankle Synthes 204.830 / / Synthes 3.5mm 6mm 16mm 2.5mm Self Tap Small Hexagonal Socket Low Profile 204.816 - [id number] Implanted:Qty: 1 on 05/02/2024 by Chris Li DO at [facility] Screw Left: Ankle Synthes 204.816 / / Synthes 3.5mm 6mm 16mm 2.5mm Self Tap Small Hexagonal Socket Low Profile 204.816 - [id number] Implanted:Qty: 1 on 05/02/2024 by Chris Li DO at [facility] Screw Left: Ankle Synthes 204.816 / / Synthes 2.7mm 2.1mm 14mm Self Tap Lock Stardrive Thread Head Profile T8 202.214 - [id number] Implanted:Qty: 1 on 05/02/2024 by Chris Li DO at [facility] Screw Left: Ankle Synthes 202.214 / / Synthes 2.7mm 2.1mm 12mm Self Tap Lock Stardrive Thread Head Profile T8 202.212 - [id number] Implanted:Qty: 1 on 05/02/2024 by Chris Li DO at [facility] Screw Left: Ankle Synthes I 202.212 / / Synthes 3.5mm 2.9mm 14mm Self Tap Lock [employer]rive Conical Head T15 Full 212.103 - [id number] Implanted:Qty: 1 on 05/02/2024 by Chris Li DO at [facility] Screw Left: Ankle Synthes 212.103 / / Synthes 3.5mm 5mm 1.35mm 50mm Cannulated Low Profile Hemispherical Head 205.250 - [id number] Implanted:Qty: 1 on 05/02/2024 by Chris Li DO at [facility] Screw Left: Ankle Synthes 205.250 / / Synthes 3.5mm 6mm 34mm 2.5mm Self Tap Small Hexagonal Socket Low Profile 204.834 - [id number] Implanted:Qty: 1 on 05/02/2024 by Chris Li DO at [facility] Screw Left: Ankle Synthes 204.834 / / Dental Implant Mouth Explanted Type Area Sucker Machine Operator Device Identifier Shelf Expiration Date Model / Serial / Lot Synthes 3.5mm 6mm 34mm 2.5mm Self Tap Small Hexagonal Socket Low Profile 204.834 - [id number] Explanted:Qty: 1 on 05/02/2024 by Chris Li DO at [facility] Screw Left: Ankle Synthes 204.834 / / Procedures Procedure Name Priority Date/Time Associated Diagnosis Comments DEVICE CHECK - REMOTE Routine 11/06/2024 9:43 AM CDT Presence of cardiac pacemaker SSS (sick sinus syndrome) (HCC) DEVICE CHECK - IN OFFICE Routine 09/24/2024 10:07 AM CDT SSS (sick sinus syndrome) (HCC) Presence of cardiac pacemaker XR ANKLE LEFT 3 OR MORE VIEWS Schedule Routine, Read Routine (OP Routine) 09/10/2024 10:36 AM CDT S/P ORIF (open reduction internal fixation) fracture COLONOSCOPY 08/04/2024 1:49 PM BELT SPLICER HEPATITIS PANEL, ACUTE STAT 05/08/2024 11:12 AM BELT SPLICER SCREENING MAMMOGRAM Schedule Routine, Read Routine (OP Routine) 09/27/2022 DEXA AXIAL SKELETON BONE DENSITY 1 OR MORE SITES Schedule Routine, Read Routine (OP Routine) 08/29/2021 from Last 3 Months or Most Recently Relevant to Health Maintenance Results * DEVICE CHECK - REMOTE (11/06/2024 9:43 AM CDT) Anatomical Region Laterality Modality Other Narrative 11/06/2024 1:17 PM CDT Medtronic Dual Pacemaker, Dx: Sinus Node Dysfunction Deglutition Syncope. DOI 01/18/2011. Carelink remote. 6 week DDD Pacemaker Remote. Transmission attached. Battery status: 2.60 V, reached LISA on 10/16/2024. 90 day replacement window applies to this device. This device has turned off the Atrial lead and reprogrammed to VVI 65 bpm. Stable lead impedances, pacing and sensing thresholds. Presenting rhythm: Vpaced. 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 Patient is Not pacemaker dependent. Medications: ASA 81 mg, Toprol XL. See scanned report. Office pacemaker follow up: post generator replacement. Carelink remote f/u to resume after pacemaker replacement. Jordana Aj RN Reece Carrasco MD CV CARDIAC SERVICES PROCE DURES Final Result * DEVICE CHECK - IN OFFICE (09/24/2024 10:07 AM CDT) Anatomical Region Laterality Modality Other Narrative 09/25/2024 8:07 AM CDT Medtronic Dual Pacemaker, Dx: Sinus Node Dysfunction. DOI 01/18/2011. Carelink remote Q6 mo, office pacer checks Q1 yr. per pt request d/t insurance. Supervising MD: Dr Lopez. Office DDD Pacemaker evaluation demonstrated appropriate device function. Battery function-2.62V, 5 months remaining battery life to LISA. Appropriate device and lead measurements noted. Presenting rhythm-ASVS (SR), 56 bpm. AP-6%, UTILITY WORKER [employer]-2%. No Atrial high rate episodes noted. 2-Ventricular high rate episode noted on 06/18/24. IEGM suggestive of NSVT, 9 beat duration. V-rate 213 bpm. 05/07/24-VHR episode noted, iegm 1:[address]-SVT @ 160 bpm, 3 second duration. Event Counters; PVC singles 51,610 since 02/20/24. PVC runs 41. Medications; Norvasc, Toprol XL, ASA 81 mg. See scanned report. Office pacemaker f/u post generator replacement. Carelink remote f/u scheduled 11/05/2024 to assess battery life. Jordana Aj RN Domingo Carmichael MD CV CARDIAC SERVICES PROC EDURES Final Result * XR Ankle Left 3 or More Views (09/10/2024 10:36 AM CDT) Anatomical Region Laterality Modality Lower Extremities, Ankle Left Compute d Radiography 09/16/2024 4:29 PM CDT Narrative 09/16/2024 4:31 PM CDT EXAM DESCRIPTION: XR ANKLE LEFT 3 OR MORE VIEWS REASON FOR STUDY: pain Mild general ankle pain since injury/fx 04/28/24, ORIF done 05/02/24 FINDINGS: Three views submitted with comparison 06/12/2024. Interval healing of internally fixated distal tibia and fibular fractures. Mild left ankle osteoarthritis. The mortise is normal. Plantar heel spur present. Midfoot osteoarthritis noted. IMPRESSION: Interval healing of internally fixated distal left tibia and fibular fractures. Mild left ankle osteoarthritis. THIS IS AN ELECTRONICALLY VERIFIED FINAL REPORT 09/16/2024 4:31 PM - Electronically signed by Alex Gayle M.D. T: Report ID: [id number] Reading Location: [id number] Procedure Note Alex Gayle MD - 09/16/2024 EXAM DESCRIPTION: XR ANKLE LEFT 3 OR MORE VIEWS REASON FOR STUDY: pain Mild general ankle pain since injury/fx 04/28/24, ORIF done 05/02/24 FINDINGS: Three views submitted with comparison 06/12/2024. Interval healing of internally fixated distal tibia and fibular fractures. Mild left ankle osteoarthritis. The mortise is normal. Plantar heel spur present. Midfoot osteoarthritis noted. IMPRESSION: Interval healing of internally fixated distal left tibia and fibular fractures. Mild left ankle osteoarthritis. THIS IS AN ELECTRONICALLY VERIFIED FINAL REPORT 09/16/2024 4:31 PM - Electronically signed by Alex Gayle M.D. T: Report ID: [id number] Reading Location: [id number] Chris Li DO IMG XR PROCEDURES Final Result * Colonoscopy (08/04/2024 1:49 PM BELT SPLICER) Anatomical Region Laterality Modality Other Narrative Procedure Note Hipolito Stack MD - 08/04/2024 1:49 PM CST [facility] GI ENDOSCOPY Patient Name: Ciera Keen Procedure Date: 08/04/2024 1:49 PM Date of : 1955 Admit Type: Outpatient Age: 69 Gender: Female Attending MD: Hipolito Stack MD Room: [facility] ENDOSCOPY ROOM 06 Note Status: Finalized Procedure: Colonoscopy Indications: Iron deficiency anemia, Weight loss, Average risk Referring MD: Josiah Albert M.D. Providers: Hipolito Stack MD Medicines: See the Anesthesia note for documentation of the administered medications Complications: No immediate complications. Estimated Blood Loss: Estimated blood loss was minimal. Procedure: Pre-Anesthesia Assessment: - Prior to the procedure, a History and Physicalwas performed, and patient medications and allergieswere reviewed. The risks and benefits of the procedureand the sedation options and risks were discussed withthe patient. All questions were answered and informed consent was obtained. Patient identification and proposed procedure were verified. After reviewingthe risks and benefits, the patient was deemed in satisfactory condition to undergo the procedure.The anesthesia plan was to use monitored anesthesiacare (MAC). Immediately prior to administration of medications, the patient was re-assessed foradequacy to receive sedatives. The heart rate, respiratory rate, oxygen saturations, blood pressure, adequacyof pulmonary ventilation, and response to care were monitored throughout the procedure. The physical status of the patient was re-assessed after the procedure. The benefits, risks and alternatives of theprocedure and sedation were discussed and informed consentwas obtained. All questions were answered. Please referto the signed informed consent document in the medical record. The scope was passed under direct vision.The [id number] colonoscope was introduced through theanus and advanced to the terminal ileum, with identification of the appendiceal orifice and IC valve. The colonoscopy was performed without difficulty. The patient tolerated the procedurewell. The quality of the bowel preparation was good.Scope insertion time was 3 minutes. Scope withdrawal time was 8 minutes. Prep was administered in a splitdose. Findings: The perianal and digital rectal examinations were normal. The visualized terminal ileum appeared normal. Diverticula (moderate) were found in the sigmoid colon and descending colon. Internal hemorrhoids were found. The hemorrhoids were small. Impression: - The examined portion of the terminal ileum was normal. - Diverticulosis in the sigmoid colon and in the descending colon. - Internal hemorrhoids. - No specimens collected. Recommendation: - Resume previous diet today. - Discharge patient to home. - Increase fiber. - Recommend a capsule endoscopy as the next step in evaluation of iron deficiency anemia. - Patient has a contact number available for emergencies. The signs and symptoms of potential delayed complications were discussed with thepatient. Return to normal activities tomorrow. Written discharge instructions were provided to thepatient. - Repeat colonoscopy in 10 years for screening purposes based on your overall health at thattime. - I would be happy to see you in my GI clinic ifyou have further questions or concerns or if symptoms progress Hipolito Stack MD 08/04/2024 2:32:00 PM Number of Addenda: 0 Note Initiated On: 08/04/2024 1:49 PM Recognized by the [place] [employer] for promoting quality in endoscopy us Hipolito Stack MD ENDOSCOPY PROCEDURES Agustina l Result * Hepatitis panel, acute Blood (05/08/2024 11:12 AM BELT SPLICER) Hep A IgM Nonreactive Nonreactive Comment: Interpretive Data: If Hep A IgM Ab is reported as Equivocal, a new sample should be drawn in two weeks for testing. Current interpretive data was last revised on 19. Hep B core IgM Nonreactive Nonreactive RIGO Comment: Interpretive Data If HepB Core IgM Ab is reported as Equivocal, a new sample should be drawn in two weeks for testing. Current interpretive data was last revised on 19. Hep C Ab Nonreactive Nonreactive RIGO Comment: Antibodies to HCV not detected. Does NOT exclude the possibility of recent exposure to HCV. Current interpretive data was last revised on 22 Interpretive Data Nonreactive: Antibodies to HCV not detected. Does NOT exclude the possibility of recent exposure to HCV. Equivocal: Equivocal for HCV antibodies. Supplemental molecular testing will be automatically performed to determine infection status in accordance with current CDC screening recommendations. Reactive: Positive for HCV antibodies. This may represent current or past HCV infection. Supplemental molecular testing will be automatically performed to determine current infection status in accordance with current CDC screening recommendations. Interpretive data was last revised on 2019. HepBsAg Nonreactive Nonreactive RIGO Blood 05/08/2024 11:1 2 AM BELT SPLICER 05/08/2024 12:15 PM BELT SPLICER Diane Johnson NP LAB MICROBIOLOGY - GENERAL ORDKeyla NIEVES Final Result Performing Organization Address City/State/[facility] Co de Phone Number RIGO [address] [facility] Department [place] [address] * Screening Mammogram (09/27/2022) Anatomical Region Laterality Modality Breast N/A Mammography Generic External Data Provider IMG MAMMO PROCEDU RES Final Result * Dexa Axial Skeleton Bone Density 1 or 2 Site (08/29/2021) Anatomical Region Laterality Modality Body N/A Radiographic Cristine ging Historical Provider IMSaurabh DXA PROCEDURES Final Result from Last 3 Months or Most Recently Relevant to Health Maintenance Insurance [employer] MEDICARE GOLD Advance Directives For more information, please contact: [phone] * Full Code (Latest Code Status on File) Date Activated Date Inactivated Comments 07/22/2024 8:15 AM 07/22/2024 2:22 PM * Full Code Date Activated Date Inactivated Comments 05/03/2024 5:13 PM 05/08/2024 4:06 PM Care Teams Congressional Representative Relationship Specialty Start Date End Date Nj Krishnamurthy MD PCP - General Internal Medicine 01/29/18 Reece Carrasco MD [address], [address] [place] [address] Consulting Physician Cardiology 04/30/24 Susy Laura PA [address] [facility] [address] [place] [id number] Orthopedic Surgery 05/02/24
--- OUTSIDE RECORDS SUMMARY | 2024-12-03 02:01 | XMS_ITS | Referral Summary ---
Author Organization [facility] [place] [address] [facility] [address] Address [address] [place] [address] Care Team Providers Care Consulting Solution Manager Name Role Phone Nj Krishnamurthy MD Primary Care Provider Reece Carrasco MD Unavailable Susy Laura Unavailable [phone] Encounters Date Type Department Care Team Description 11/26/2024 Telephone [facility] Cardiology [address] [place] [address] Reece Carrasco MD 11/06/2024 Telephone [facility] Cardiology [address] [place] [address] [place] [phone] Reece Carrasco MD 11/05/2024 9:00 AM CDT Ancillary Procedure [facility] Cardiology [address] [place] [address] [place] [phone] Deglutition syncope (Primary Dx); Presence of cardiac pacemaker; SSS (sick sinus syndrome) (HCC) 11/04/2024 Telephone [facility] Cardiology [address] [place] [address] [place] [phone] Reece Carrasco MD 09/24/2024 Orders Only [facility] Cardiology [address] [place] [address] [place] [phone] Reece Carrasco MD Presence of cardiac pacemaker (Primary Dx); SSS (sick sinus syndrome) (HCC) 09/24/2024 10:30 AM CDT Ancillary Procedure [facility] Cardiology [address] [place] [address] SSS (sick sinus syndrome) (HCC); Presence of cardiac pacemaker 09/23/2024 Telephone [facility] Cardiology [address] [place] [address] Reece Carrasco MD 09/10/2024 10:19 AM CDT - 09/10/2024 11:59 PM CDT Hospital Encounter [facility] [address] [place] [address] S/P ORIF (open reduction internal fixation) fracture Discharge Disposition: Discharge to home or self care 09/10/2024 10:15 AM CDT Office Visit [facility] [facility] [address] [place] [phone] Chris Li DO S/P ORIF (open reduction internal fixation) fracture (Primary Dx) from Last 3 Months Allergies Active Allergy Reactions Criticality Noted Date Comments Omeprazole Angioedema,Edema High Reaction: edema, , Reaction: Angioedema, , Reaction: Angioedema, , Pantoprazole Shortness of breath High Reaction: Bronchospasm, Akipwql-Kek-Vnp Reductase Inhibitors Joint pain Low 07/18/2022 Tetanus [...] a day for 14 days 28 tablet 11/15/2 024 Active Additional Information Patient not taking.Reported on 08/04/2024 lansoprazole (PREVACID) 30 mg capsule Take 1 capsule (30 mg total) by mouth daily Active furosemide (LASIX) 20 mg tabletIndications :Bilateral lower extremity edema TAKE 1 TABLET (20 MG TOTAL) BY MOUTH DAILY NEEDED (SWELLING). 90 tablet 1 024 Active Additional Information Patient not taking.Reported [...] 025 Active GaviLyte-G 236-22.74-6.74 -5.86 gram solution 025 Active escitalopram (LEXAPRO) 10 mg tablet TAKE [...] 05/13/2024 Assessment & Plan (05/13/2024 1:30 PM VICE PRESIDENT): Wt Readings from Last 3 Encounters: 05/03/24 [...] 05/03/2024 Assessment & Plan (07/03/2024 3:45 PM VICE PRESIDENT): The patient presents to the GI clinic [...] evaluation. Assessment & Plan (05/14/2024 4:52 PM VICE PRESIDENT): -acute, resolving -patient was recently hospitalized at [facility] from 05/03 to 05/08 -no clear etiology [...] 05/02/2024 Assessment & Plan (05/19/2024 1:52 PM VICE PRESIDENT): Patient is doing well overall. X-rays were [...] plan. Assessment & Plan (05/14/2024 4:57 PM VICE PRESIDENT): -acute -associated with left ankle fracture -underwent [...] 07/10/2023 Assessment & Plan (07/11/2023 8:51 AM VICE PRESIDENT): Acute problem-stable OTC Tylenol as directed for discomfort Ordered covid, flu a/b POC- negative results Continue to monitor Dizziness 07/10/2023 Assessment & Plan (07/11/2023 9:00 AM VICE PRESIDENT): Acute problem- this is a new problem-patient [...] 07/10/2023 Assessment & Plan (07/11/2023 8:55 AM VICE PRESIDENT): Acute problem- Patient post RSV and unsure if she had been in close contact with covid virus- was in the ED recently Ordered covid, flu a/b POC- negative results Continue to monitor Fatigue 07/10/2023 Assessment & Plan (07/11/2023 8:53 AM VICE PRESIDENT): Acute problem-poorly controlled- this is likely related to post RSV infection 3 weeks ago OTC Tylenol as directed for discomfort Ordered covid, flu a/b POC- negative results Continue to monitor Push fluids-water, less tea and coffee Encounter for follow-up exam ination after completed treatment for conditions other than malignant neoplasm 07/10/2023 Assessment & Plan (07/11/2023 8:54 AM VICE PRESIDENT): I personally reviewed H and P documentation, labs, ECG tracing obtained at [facility] Emergency room via paperwork brought in by [...] request Assessment & Plan (07/11/2023 8:49 AM VICE PRESIDENT): Pacemaker present Follow up with cardiology as scheduled for routine device check Herpes simplex virus (HSV) infection 11/01/2013 Overview (09/20/2016): HERPES SIMPLEX NOS Gastroesophageal reflux disease 11/01/2013 Overview (09/22/2016): ESOPHAGEAL REFLUX Benign hypertension 05/20/2010 Overview (09/22/2016): Benign Hypertension Assessment & Plan (07/11/2023 9:01 AM VICE PRESIDENT): Chronic problem- poorly controlled BP this visit 151/100, rechecked after 10 minute rest 160/90-remained elevated This is managed by cardiology Continue metoprolol 25 mg daily Continue amlodipine 5 mg- will increase to 2 tablets (10 mg) daily to help lower BP Follow up with pcp in 2 weeks for HTN- bring bp log to visit Follow up with rug setter velvet as scheduled-sooner prn Resolved Problems Problem Noted Date Diagnosed Date Resolved Date Dyslipidemia 07/07/2016 01/11/2022 Overview (09/21/2016): Mixed dyslipidemia Depression 11/01/2013 06/24/2019 Overview (09/22/2016): DEPRESSIVE DISORDER NEC Immunizations Immunization Administration Dates Next Due Influenza, [...] Pneumococcal Polysaccharide PPV23 03/28/2019 ZOSTER Recombinant 07/19/2019,02/26/2019 Social History Tobacco Use Types Packs/Day Years Used Date Smoking Tobacco: Never Smokeless Tobacco: Never Tobacco Cessation:Counseling Given: Not Answered Alcohol Use Standard Drinks/Week Comments Yes 0 (1 standard drink = 0.6 oz pur e alcohol) 3 times in a year maybe [facility] Utilities Answer Date Recorded In the past 12 months has th e [employer], gas, oil, or water [employer] threatened to shut off services in your [...] often do you attend chur ch or scientologist services? More than 4 times per year 05/09/2024 Do you belong to any clubs o r organizations such as pentecostalism groups, unions, fraternal or athletic groups, or [...] in the past [address] [facility], were you homeless or living in a detention (including now)? No 05/05/2024 Personal Safety Answer Date Recorded Have you ever been in or are you currently in a harmful physical or emotional relationship or is someone making you feel afraid or unsafe? Denies 08/04/2024 Comments No Sex and Gender Information Value Date Recorded Sex Assigned at Not on file Legal Sex Female 7:39 PM VICE PRESIDENT Gender Identity Female 04/29/2021 8:18 AM VICE PRESIDENT Sexual Orientation Straight 04/29/2021 8: 18 AM VICE PRESIDENT Last Filed Vital Signs Vital Sign Reading Time Taken Comments Blood Pressure 145/88 08/04/2024 2:50 PM VICE PRESIDENT Pulse 71 08/04/2024 2:50 PM VICE PRESIDENT Temperature 36.5 C (97.7 F) 08/04/2024 2:32 PM VICE PRESIDENT Respiratory Rate 14 08/04/2024 2:50 PM VICE PRESIDENT Oxygen Saturation 98% 08/04/2024 2:50 PM VICE PRESIDENT Inhaled Oxygen Concentration - - Weight 72.6 kg (160 lb) 08/04/2024 12:53 PM VICE PRESIDENT Height 170.2 cm (5' 7) 08/04/2024 12:53 PM VICE PRESIDENT Body Mass Index 25.06 08/04/2024 12:53 PM VICE PRESIDENT Plan of Treatment Not on file Medical Devices Implanted Type Area Meat Scrubber Device Identifier Shelf Expiration Date Model / Serial / Lot Pacemaker- 1 Implanted: 011 (Quantity not on file) Pacemaker Chest Medtronic Sinus Node Dysfunction VERSA [id number] / [id number] / Synthes 1/3 Tubular Plate Four Hole Lcp Plate Implanted:Qty: 1 on 05/02/2024 by Chris Li DO at [facility] Plate Left: Ankle Synthes 241.341 / 241.341 / Synthes Lcp Combi 73mm 3 Hole Fibula Left Distal Lateral Contour Plate 02.112.137 - [id number] Implanted:Qty: 1 on 05/02/2024 by Chris Li DO at [facility] Plate Left: Ankle Synthes I 02.112.13 7 / / Synthes 3.5mm 6mm 30mm 2.5mm Self Tap Small Hexagonal Socket Low Profile 204.830 - [id number] Implanted:Qty: 1 on 05/02/2024 by Chris Li DO at [facility] Screw Left: Ankle Synthes 204.830 / / Synthes 3.5mm 6mm 16mm 2.5mm Self Tap Small Hexagonal Socket Low Profile 204.816 - [id number] Implanted:Qty: 1 on 05/02/2024 by Chris Li DO at [facility] Screw Left: Ankle Synthes 204.816 / / Synthes 3.5mm 6mm 16mm 2.5mm Self Tap Small Hexagonal Socket Low Profile 204.816 - [id number] Implanted:Qty: 1 on 05/02/2024 by Chris Li DO at [facility] Screw Left: Ankle Synthes 204.816 / / Synthes 2.7mm 2.1mm 14mm Self Tap Lock Stardrive Thread Head Profile T8 202.214 - [id number] Implanted:Qty: 1 on 05/02/2024 by Chris Li DO at [facility] Screw Left: Ankle Synthes 202.214 / / Synthes 2.7mm 2.1mm 12mm Self Tap Lock Stardrive Thread Head Profile T8 202.212 - [id number] Implanted:Qty: 1 on 05/02/2024 by Chris Li DO at [facility] Screw Left: Ankle Synthes I 202.212 / / Synthes 3.5mm 2.9mm 14mm Self Tap Lock Stardrive Conical Head T15 Full 212.103 - [id number] Implanted:Qty: 1 on 05/02/2024 by Chris Li DO at [facility] Screw Left: Ankle Synthes 212.103 / / Synthes 3.5mm 5mm 1.35mm 50mm Cannulated Low Profile Hemispherical Head 205.250 - [id number] Implanted:Qty: 1 on 05/02/2024 by Chris Li DO at [facility] Screw Left: Ankle Synthes 205.250 / / Synthes 3.5mm 6mm 34mm 2.5mm Self Tap Small Hexagonal Socket Low Profile 204.834 - [id number] Implanted:Qty: 1 on 05/02/2024 by Chris Li DO at [facility] Screw Left: Ankle Synthes 204.834 / / Dental Implant Mouth Explanted Type Area Meat Scrubber Device Identifier Shelf Expiration Date Model / Serial / Lot Synthes 3.5mm 6mm 34mm 2.5mm Self Tap Small Hexagonal Socket Low Profile 204.834 - [id number] Explanted:Qty: 1 on 05/02/2024 by Chris Li DO at [facility] Screw Left: Ankle Synthes 204.834 / / [...] internal fixation) fracture COLONOSCOPY 08/04/2024 1:49 PM VICE PRESIDENT HEPATITIS PANEL, ACUTE STAT 05/08/2024 11:12 AM VICE PRESIDENT SCREENING MAMMOGRAM Schedule Routine, Read Routine (OP [...] pacing and sensing thresholds. Presenting rhythm: Vpaced. SPR[employer]-2.1%. Patient is Not pacemaker dependent. Medications: ASA 81 mg, Toprol XL. See scanned report. Office pacemaker follow up: post generator replacement. Carelink remote f/u to resume after pacemaker replacement. Jordana Aj, RN Reece Carrasco MD CV CARDIAC SERVICES [facility] Final Result * DEVICE CHECK - IN [...] function-2.62V, 5 months remaining battery life to LIAS. Appropriate device and lead measurements noted. Presenting rhythm-ASVS (SR), 56 bpm. AP-6%, [employer]-2%. No Atrial high rate episodes noted. 2-Ventricular [...] to assess battery life. Jordana Aj RN us Domingo Carmichael MD CV CARDIAC SERVICES PROC [...] by Alex Gayle M.D. T: Report ID: [id number] Reading Location: [id number] Procedure Note Alex Gayle MD - 09/16/2024 [...] by Alex Gayle M.D. T: Report ID: [id number] Reading Location: [id number] us Chris Guillermo DO IMG XR PROCEDURES Final Result * Colonoscopy (08/04/2024 1:49 PM VICE PRESIDENT) Anatomical Region Laterality Modality Other Narrative Procedure Note Hipolito Stack MD - 08/04/2024 1:49 PM CST [facility] GI ENDOSCOPY Patient Name: Ciera Keen Procedure Date: 08/04/2024 1:49 PM Date of : 1955 Admit Type: Outpatient Age: 69 Gender: Female Attending MD: Hipolito Stack MD Room: [facility] ENDOSCOPY ROOM 06 Note Status: Finalized Procedure: [...] The scope was passed under direct vision.The [id number] colonoscope was introduced through theanus and advanced [...] or concerns or if symptoms progress Hipolito Stcak MD 08/04/2024 2:32:00 PM Number of Addenda: 0 Note Initiated On: 08/04/2024 1:49 PM Recognized by the [place] [employer] for promoting quality in endoscopy Hipolito Stack MD ENDOSCOPY PROCEDURES Agustina l Result * Hepatitis panel, acute Blood (05/08/2024 11:12 AM VICE PRESIDENT) Hep A IgM Nonreactive Nonreactive Comment: Interpretive [...] last revised on 2019. HepBsAg Nonreactive Nonreactive [facility] Blood 05/08/2024 11:1 2 AM VICE PRESIDENT 05/08/2024 12:15 PM VICE PRESIDENT us Diane Johnson NP LAB MICROBIOLOGY - GENERAL STEPHANIE NIEVES Final Result RIGO GOFF [address] [facility] Department [place] [address] * Screening Mammogram (09/27/2022) Anatomical Region Laterality Modality Breast N/A Mammography us Generic External Data Provider IMG MAMMO PROCEDU RES Final Result * Dexa Axial Skeleton Bone Density 1 or 2 Site (08/29/2021) Anatomical Region Laterality Modality Body N/A Radiographic Cristine ging Historical Provider IMSaurabh DXA PROCEDURES Final Result from Last 3 Months or Most Recently Relevant to Health Maintenance Insurance [facility] MEDICARE [facility] Advance Directives For more information, please contact: [phone] * Full Code (Latest Code Status on File) Date Activated Date Inactivated Comments 07/22/2024 8:15 AM 07/22/2024 2:22 PM * Full Code Date Activated Date Inactivated Comments 05/03/2024 5:13 PM 05/08/2024 4:06 PM Care Teams Consulting Solution Manager Relationship Specialty Start Date End Date Nj Krishnamurthy MD PCP - General Internal Medicine 01/29/18 Reece Carrasco MD [address] [place] [address] Consulting Physician Cardiology 04/30/24 Susy Laura PA [address] [place] [address] Orthopedic Surgery 05/02/24
--- OUTSIDE RECORDS SUMMARY | 2024-12-03 02:02 | XMS_ITS | Encounter Summary ---
Author Organization [facility] Address [address] [facility] [address] [place] [address] Care Team Providers Care Refrigeration Houseman Name Role Phone Nadeem Dyson MD Primary Care Provider [phone] Nadeem Dsyon MD Primary Care Provider [phone] Nj Krishnamurthy MD Primary Care Provider Reece Carrasco MD Unavailable [phone] Susy Laura Unavailable [phone] Rafael Gilbert RN Unavailable [phone] Encounter Details Date Type Department Care Team (Late st Contact Info) Description 06/21/2016 Orders Only [facility] Provider, MD Twin [address] [place] [address] Social History Tobacco Use Types Packs/Day Years Used Date Smoking Tobacco: Never Alcohol Use Standard Drinks/Week Comments Yes 0 (1 standard drink = 0.6 oz pur e alcohol) Comments Unknown Sex and Gender Information Value Date Recorded Sex Assigned at Not on file Legal Sex Female 7:39 PM LOG CLERK Gender Identity Female 04/29/2021 8:18 AM LOG CLERK Sexual Orientation Straight 04/29/2021 8: 18 AM LOG CLERK documented as of this encounter Plan of Treatment Not on file documented as of this encounter Procedures Procedure Name Priority Date/Time Associated Diagnosis Comments CARDIOLOGY REPORT 06/21/2016 documented in this encounter Results * CARDIOLOGY REPORT (06/21/2016) Anatomical Region Laterality Modality Other Narrative 06/21/2016 Ordered by an unspecified provider. us Historical Provider [facility] Final Result documented in this encounter Visit Diagnoses Not on filedocumented in this encounter Additional Health Concerns Infection Onset Date Last Indicated Resolved Time COVID: Suspected 04/11/2022 04/11/2022 04/11/2022 11:07 AM CDT COVID: Suspected 04/11/2022 04/11/2022 04/11/2022 3:24 PM CDT Coronavirus, droplet 04/11/2022 04/11/2022 022 3:05 AM CDT Exposure, COVID-19 Comment:Added automatically based on COVID19 lab answers indicating exposure risk 06/13/2023 06/13/2023 06/23/2023 3:[address] COVID: Suspected 06/13/2023 06/13/2023 06/13/2023 4:06 PM LOG CLERK RSV, droplet 06/13/2023 06/13/2023 06/20/2023 3:05 AM LOG CLERK COVID: Suspected 07/10/2023 07/10/2023 07/11/2023 3:07 AM LOG CLERK documented as of this encounter Care Teams Refrigeration Houseman Relationship Specialty Start Date End Date Nadeem Dyson MD [address] [place] [address] PCP - General 09/15/16 01/28/18 Nadeem Dyson MD [address] [place] [address] PCP - General 05/13/07 09/14/16 Nj Krishnamurthy MD [address] [place] [address] PCP - General Internal Medicine 01/29/18 Reece Carrasco MD [address] [place] [address] Consulting Physician Cardiology 04/30/24 Susy Laura PA [address] [facility] [address] [address] [place] [address] Orthopedic Surgery 05/02/24 Rafael Gilbert RN [address] [place] [address] [address] [place] [address] Data Warehouse Consultant 05/09/24 06/15/24 documented as of this encounter
--- OUTSIDE RECORDS SUMMARY | 2024-12-03 02:02 | XMS_ITS | Continuity of Care Document ---
Author Organization [facility] Address [address] [place] [address] Phone Care Team Providers Care Forming Department End Finder Name Role Phone Martinez PT,MPT,ATC, Dennis Unavailable Unavai lable Procedures Procedure Date THERAPEUTIC EXERCISES NEUROMUSCULAR RE-ED MANUAL THERAPY THERAPEUTIC EXERCISES NEUROMUSCULAR RE-ED MANUAL THERAPY THERAPEUTIC EXERCISES NEUROMUSCULAR RE-ED MANUAL THERAPY THERAPEUTIC EXERCISES NEUROMUSCULAR RE-ED MANUAL THERAPY THERAPEUTIC EXERCISES NEUROMUSCULAR RE-ED MANUAL THERAPY THERAPEUTIC EXERCISES NEUROMUSCULAR RE-ED MANUAL THERAPY THERAPEUTIC EXERCISES NEUROMUSCULAR RE-ED MANUAL THERAPY PT Evaluation Low Complexity THERAPEUTIC EXERCISES MANUAL THERAPY HOT/COLD PACK Advance Directives Directive Yes / No Effective Date File Name No Information Encounters Encounter Description Practice Location Reason(s) For Visit Diagnoses Date Provider Providers Copied on Encounter [facility], [place], [place], [address], tel:[phone] [place] No Information Sep- 7 Martinez Frazier , [place], [place]. [facility], [place], [place], [address], [place] tel:[phone] [place] No Information 7 Henriquez Dennis. , [place], [place]. [facility], [address], [place], [place], [address], tel:[phone] [place] No Information 7 Henriquez Dennis. , [place], [place]. [facility], [address], [place], [place], [address], tel:[phone] [place] No Information 7 Henriquez Dennis. , [place], [place]. [facility], [address], [place], [place], [address], tel:[phone] [place] No Information 7 Henriquez Dennis. , [place], [place]. [facility] [facility], [place], [place], [address], tel:[phone] [place] No Information 7 Henriquez Dennis. [place], [place], [place]. [facility], [address], [place], [place], [address], tel:[phone] [place] No Information [address] [place]. [place], [place]. [facility], [address] [address], [place], [place], [address], tel:[phone] [place] CervicalgiaOth symptoms and signs involving the musculoskeletal systemAbnormal postureRadiculop athy, site unspecified [address] [place] [address] [facility], [address], [place], [address], [place]. tel: [phone] Family History Family Member Type Diagnosis Age At Onset No Information Payers Payer name Insurance type Covered republican ID Authorlovea tiklever(s) [facility] [id number] Social History Type Description Quantity Date Captured Comments Sex Female Smoking Status No Information Chief Complaint And Reason For Visit No Information Reason For Referral Reason For Referral No Information History Of Present Illness Encounter Date Complaint History Of Prese nt Illness No Information Functional Status Date Functional Assessmen t No Information Instructions Date Instruction Additional Infor mation No Information Assessments Type Assessment Date No Information Patient Care Teams Name Effective Dates (start - stop) Status Members No Information
--- OUTSIDE RECORDS SUMMARY | 2024-12-03 02:02 | XMS_ITS | Clinical Summary ---
Author Organization [facility] Address [address] [place] [address] Care Team Providers Care Saloon Keeper Name Role Phone Nj Krishnamurthy MD Primary Care Provider Source Comments [facility],non-owned Affiliates and Associated Physician Practices is amultiple site organization consisting of ambulatory clinics and hospital sitesin [place], [place], [place] and [place]. This disclosure is being madepursuant to the Care Everywhere program and may not contain all information available regarding this patient. Last updated 18.[facility] Allergies Active Allergy Reactions Criticality Noted Date Comments Adhesive Sensitivity Rash Medium Aspirin Itching Pantoprazole Shortness of Breath High Reaction: Bronchospasm, Tetanus Toxoid Rash Medium 08/13/2018 Medications * Be aware that medications may not be up to date on this document. Alwaysverify current medications with the patient. 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 DOI 01/18/2011. Carelink remote Q6 mo, office pacer checks Q1 yr-per pt request Depression 11/01/2013 Overview (11/24/2018): Overview: DEPRESSIVE DISORDER NEC Gastroesophageal reflux disease 11/01/2013 Overview (11/24/2018): Overview: ESOPHAGEAL REFLUX Herpes simplex virus (HSV) infection 11/01/2013 Overview (11/24/2018): Overview: HERPES SIMPLEX NOS Benign hypertension 05/20/2010 Overview (11/24/2018): Overview: Benign Hypertension Family History Medical History Relation Name Comments Hypertension Father Hypertension Mother Relation Name Status Comments Father Mother Social History Tobacco Use Types Packs/Day Years Used Date Smoking Tobacco: Never Smokeless Tobacco: Never Comments No Sex and Gender Information Value Date Recorded Sex Assigned at Not on file Legal Sex Female 2:10 PM CDT Gender Identity Not on file Sexual Orientation Not on file Last Filed Vital Signs Vital Sign Reading Time Taken Comments Blood Pressure 130/76 11/24/2018 3:40 PM CDT Pulse 88 11/24/2018 3:40 PM CDT Temperature 36.9 C (98.5 F) 11/24/2018 3:40 PM CDT Respiratory Rate 20 11/24/2018 3:40 PM CDT Oxygen Saturation 95% 11/24/2018 3:40 PM CDT Inhaled Oxygen Concentration - - Weight 77.1 kg (170 lb) 11/24/2018 3:40 PM CDT Height 170.2 cm (5' 7) 11/24/2018 3:40 PM CDT Body Mass Index 26.63 11/24/2018 3:40 PM CDT Plan of Treatment Health Maintenance Due Date Last Done Comments BONE DENSITY TESTING 1955 COLOGUARD (AGES 45-75) - COL ON CA SCREENING 1955 CT COLONOGRAPHY - COLON CA SCREENING 1955 FIT - COLON CA SCREENING 1955 FLEX SIG - COLON CA SCREENING 1955 LIPID TESTING 1955 MAMMOGRAM 1955 HEPATITIS C SCREENING 02/08/1971 DTAP/TDAP/TD VACCINES (1 - Tdap) 02/13/1972 PNEUMOCOCCAL VACCINE 50+ (1 of 1 - PCV) 2003 ZOSTER VACCINE (1 of 2) 2003 SCREENING FOR DIABETES 08/13/2018 COVID-19 VACCINE (1 - 2023-2 5 season) 2024 DEPRESSION SCREENING 06/18/2024 INFLUENZA VACCINE (Season Ended) 2025 06/07/2015, 03/17/2013 Respiratory Syncytial Virus (RSV) Vaccine Pt: or over 60 yrs (1 - 1-dose 75+ series) 02/13/2028 COLON MONITORING 04/23/2028 04/23/2018 COLONOSCOPY - COLON CA SCREENING 04/23/2028 04/23/2018 Colorectal Cancer Screening 04/23/2028 HEPATITIS B VACCINE Aged Out No longe r eligible based on patient's age to complete this topic HIB VACCINE Aged Out No longer eligi ble based on patient's age to complete this topic HPV VACCINE Aged Out No longer eligi ble based on patient's age to complete this topic MENINGOCOCCAL (Group B) VACCINE SHARED DECISION-MAKING Aged Out No longer eligible based on patient's age to complete this topic MENINGOCOCCAL GROUPS A/C/Y/W VACCINE Aged Out No longer eligible b ased on patient's age to complete this topic Insurance MEDICARE Care Teams Saloon Keeper Relationship Specialty Start Date End Date Nj Krishnamurthy MD [address] [phone] PCP - General Internal Medicine 08/13/18
--- OUTSIDE RECORDS SUMMARY | 2024-12-03 02:03 | XMS_ITS | Encounter Summary ---
Author Organization [facility] Address [address] [facility] [address] [place] [address] Care Team Providers Care Terra Cotta Setter Name Role Phone Nadeem Dyson MD Primary Care Provider [phone] Nj Krishnamurthy MD Primary Care Provider Reece Carrasco MD Unavailable [phone] Susy Laura Unavailable [phone] Rafael Gilbert RN Unavailable [phone] Encounter Details Date Type Department Care Team (Late st Contact Info) Description 09/24/2016 Orders Only [facility] ProviderTwin MD [address] [place] [address] Social History Tobacco Use Types Packs/Day Years Used Date Smoking Tobacco: Never Alcohol Use Standard Drinks/Week Comments Yes 0 (1 standard drink = 0.6 oz pur e alcohol) Comments Unknown Sex and Gender Information Value Date Recorded Sex Assigned at Not on file Legal Sex Female 7:39 PM SUPERVISOR CELL MAINTENANCE Gender Identity Female 04/29/2021 8:18 AM SUPERVISOR CELL MAINTENANCE Sexual Orientation Straight 04/29/2021 8: 18 AM SUPERVISOR CELL MAINTENANCE documented as of this encounter Plan of Treatment Not on file documented as of this encounter Procedures Procedure Name Priority Date/Time Associated Diagnosis Comments CARDIOLOGY REPORT 09/24/2016 documented in this encounter Results * CARDIOLOGY REPORT (09/24/2016) Anatomical Region Laterality Modality Other Narrative 09/24/2016 Ordered by an unspecified provider. us Historical [...] COVID: Suspected 06/13/2023 06/13/2023 06/13/2023 4:06 PM SUPERVISOR CELL MAINTENANCE RSV, droplet 06/13/2023 06/13/2023 06/20/2023 3:05 AM SUPERVISOR CELL MAINTENANCE COVID: Suspected 07/10/2023 07/10/2023 07/11/2023 3:07 AM SUPERVISOR CELL MAINTENANCE documented as of this encounter Care Teams Terra Cotta Setter Relationship Specialty Start Date End Date Nadeem Dyson MD [address] [place] [address] PCP - General 09/15/16 01/28/18 Nj Krishnamurthy MD [address] [place] [address] PCP - General Internal Medicine 01/29/18 Reece Carrasco MD [address] [place] [address] Consulting Physician Cardiology 04/30/24 Susy Laura PA [address] [facility] [address] [place] [address] Orthopedic Surgery 05/02/24 Rafael Gilbert RN [address] [place] [address] [address] [place] [address] Bilingual Manager 05/09/24 06/15/24 documented as of this encounter
[2024-12-03 10:03] VITALS: BP 135/93; PULSE 65; RESP 16; TEMP 36.6; O2SAT 97
[2024-12-03 10:16] LABS: Basophils Absolute Auto 0.1 K/mm3 (0.0-0.1); Basophils Percent Auto 0.8 % (0.2-1.2); Eosinophils Absolute Auto 0.2 K/mm3 (0-0.3); Eosinophils Percent Auto 2.2 % (0-4.4); Hematocrit 40.5 % (37.0-47.0); Hemoglobin 12.9 g/dL (12.0-15.0); Immature Granulocyte Absolute 0.02 K/mm3 (0.00-0.031); Immature Granulocyte Percent A 0.3 % (0-0.5); Lymphocytes Absolute Auto 2.22 K/mm3 (0.9-3.2); Lymphocytes Percent Auto 30.2 % (18.3-44.2); Mean Corpuscular HGB Conc 31.9 g/dl (32-36); Mean Corpuscular Hemoglobin 28.2 pg (26-34); Mean Corpuscular Volume 88.6 fl (80-100); Mean Platelet Volume 10.5 fl (7.4-10.4); Monocytes Absolute Auto 0.4 K/mm3 (0.1-0.6); Monocytes Percent Auto 5.4 % (2.6-8.5); Neutrophils Absolute Auto 4.5 K/mm3 (1.3-6.7); Neutrophils Percent Auto 61.1 % (45.5-73.1); Platelet Count Result 223 k/mm3 (150-375); Red Blood Count 4.57 M/mm3 (4.2-5.4); Red Cell Distribution Width 13.1 % (11.5-14.5); White Blood Count 7.4 K/mm3 (4.5-10.0)
[2024-12-03 10:28] LABS: Anion Gap 9 mmol/L (4-12); Blood Urea Nitrogen 19 mg/dL (7-17); Calcium 9.5 mg/dL (8.4-10.2); Carbon Dioxide 21 mmol/L (22-30); Chloride 111 mmol/L (98-107); Estimated CRCL calculation 28 ml/min; Estimated Glomerular Filt Rate 28; Glucose 92 mg/dL (65-110); Potassium 4.1 mmol/L (3.4-5.0); Sodium 141 mmol/L (137-145)
--- NOTE | 2024-12-03 10:52 | P.HP_ITS ---
H&P: HPI History of Present Illness Date/Time: 12/03/24 10:52 Chief Complaint: Pacemaker generator at LISA Narrative: This is a 69-year-old lady who has a chronically implanted pacemaker originally done January 18, 2011 for treatment of syncope with sick sinus syndrome and 2nd pauses noted on telemetry. She has done very well since then with normal device function. On routine office follow-up the device has been found to be at LISA and she is admitted today electively as an outpatient for her generator change procedure she does not have any other cardiac history. Review of Systems Constitutional: Constitutional: Reports no additional constitutional complaints Eyes: Eyes: Reports no additional eye complaints ENT: Reports system reviewed and no additional complaints, except as documented Cardiovascular: Cardiovascular: Reports as per HPI Respiratory: Respiratory: Reports no additional respiratory complaints Gastrointestinal: Gastrointestinal: Reports no additional gastrointestinal complaints Musculoskeletal: Musculoskeletal: Reports no additional musculoskeletal complaints Integumentary/Breasts: Skin/Breast: Reports system reviewed and no additional complaints, except as docu Neurologic: Reports system reviewed and no additional complaints, except as documented [facility] Past Medical History Medical History Essential tremor Pacemaker Vasovagal syncope Surgical History Surgical History Hx of cholecystectomy Social History Social History Smoking status: Never smoker Second hand tobacco smoke exposure: No Alcohol intake: never Alcohol use details: rarely Substance use: never Substance use type: does not use Living arrangements: alone Spiritual care concerns: No Meds Home Medications and Allergies Home Medications ?Medication ?Instructions ?Recorded ?Confirmed ?Type ergocalciferol (vitamin D2) 1,250 50,000 unit PO WEEKLY 03/01/20 12/02/24 History mcg (50,000 unit) capsule amlodipine 5 mg tablet 5 mg PO DAILY 12/02/24 12/02/24 History escitalopram oxalate 10 mg tablet 10 mg PO DAILY 12/02/24 12/03/24 History furosemide 20 mg tablet 20 mg PO DAILY 12/02/24 12/02/24 History metoprolol succinate 50 mg 50 mg PO DAILY 12/02/24 12/03/24 History tablet,extended release 24 hr Allergies Allergy/AdvReac Type Severity Reaction Status Date / Time omeprazole Allergy Unknown Hives / Verified 07/06/23 20:23 Red Face sucralfate Allergy Unknown Hives / Verified 07/06/23 20:23 Red Face Tetanus Vaccines and Toxoid Allergy Unknown Hives / Verified 07/06/23 20:23 Red Face OMEPRAZOLE MAGNESIUM Allergy Unknown Hives / Uncoded 07/06/23 16:46 Red Face PANTOPRAZOLE SODIUM Allergy Unknown Hives / Uncoded 07/06/23 16:46 Red Face Vital Signs Vital Signs - 24 hr 12/03/24 10:03 Temperature 36.6 C Pulse Rate 65 Respiratory Rate 16 Blood Pressure 135/93 H Pulse Oximetry 97 Oxygen Delivery Room Air Exam Narrative: Healthy-appearing white female no apparent distress Const: General: comfortable and no acute distress HENMT: Mouth: Yes moist mucous membranes Eyes: Sclera: sclerae normal Pupils: Equal, round and reactive pupils present Neck: Neck: supple and no JVD Resp: Effort & Inspection: normal respiratory effort Auscultation: clear to auscultation bilaterally Other: Pacemaker pocket in the left anterior chest wall is unremarkable Cardio: Rate: regular rate Rhythm: regular rhythm GI: GI Palp: Yes Soft to palpation Auscultation: normal bowel sounds Skin: General skin exam: normal color Neuro: Other: Alert and oriented x3 Extrem: General: normal to inspection H&P: Results Labs Labs: Short CBC 12/03/24 Range/Units 10:04 WBC 7.4 (4.5-10.0) K/mm3 Hgb 12.9 (12.0-15.0) g/dL Hct 40.5 (37.0-47.0) % Plt Count 223 (150-375) k/mm3 [facility] 12/03/24 10:04 Sodium 141 Potassium 4.1 Chloride 111 H Carbon Dioxide 21 L BUN 19 H Creatinine 1.80 H Glucose 92 Calcium 9.5 Assessment and Plan Assessment and plan (1) Pacemaker at end of battery life: Code(s): Z45.010 - Encounter for checking and testing of cardiac pacemaker pulse generator [battery] Status: Acute Plan Proceed with explantation of depleted pacemaker pulse generator and implantation of new pulse generator for ongoing treatment of sick sinus syndrome in this 69-year-old lady Alex Lopez MD [facility]
--- NOTE | 2024-12-03 10:54 | WPDMODSED ---
Moderate Sedation Note-Pt Data Patient Data Diagnosis: Pacemaker at LISA Present Complaint: No complaints Procedure to be performed/Plan: Pacemaker generator change Allergies Allergy/AdvReac Type Severity Reaction Status Date / Time omeprazole Allergy Unknown Hives / Verified 07/06/23 20:23 Red Face sucralfate Allergy Unknown Hives / Verified 07/06/23 20:23 Red Face Tetanus Vaccines and Toxoid Allergy Unknown Hives / Verified 07/06/23 20:23 Red Face OMEPRAZOLE MAGNESIUM Allergy Unknown Hives / Uncoded 07/06/23 16:46 Red Face PANTOPRAZOLE SODIUM Allergy Unknown Hives / Uncoded 07/06/23 16:46 Red Face Home Medications ?Medication ?Instructions ?Recorded ?Confirmed ?Type ergocalciferol (vitamin D2) 1,250 50,000 unit PO WEEKLY 03/01/20 12/02/24 History mcg (50,000 unit) capsule amlodipine 5 mg tablet 5 mg PO DAILY 12/02/24 12/02/24 History escitalopram oxalate 10 mg tablet 10 mg PO DAILY 12/02/24 12/03/24 History furosemide 20 mg tablet 20 mg PO DAILY 12/02/24 12/02/24 History metoprolol succinate 50 mg 50 mg PO DAILY 12/02/24 12/03/24 History tablet,extended release 24 hr Sedation/Anesthesia: No previous sedation/anesthesia problems (including family history). [facility] Past Medical History Medical History Essential tremor Pacemaker Vasovagal syncope Surgical History Surgical History Hx of cholecystectomy Social History Social History Smoking status: Never smoker Second hand tobacco smoke exposure: No Alcohol intake: never Alcohol use details: rarely Substance use: never Substance use type: does not use Living arrangements: alone Spiritual care concerns: No Mod Sed Physical Exam Physical Exam Pre Procedural Exam: Normal: Appearance, Neck, Throat, Airway, Lungs, Heart Size, Heart Rate, Heart Rhythm, Neuro Exam and Extremities Hours since solid foods: 12 Hours since liquid intake: 12 Mallampati Classification: class II Internal Medicine - PN: Obj Da Vital Signs Vital Signs: Vital Signs - 24 hr 12/03/24 10:03 Temperature 36.6 C Pulse Rate 65 Respiratory Rate 16 Blood Pressure 135/93 H Pulse Oximetry 97 Oxygen Delivery Room Air Labs 12/03/24 10:04 12/03/24 10:04 Labs: Laboratory Results - last 24 hr 12/03/24 10:04 WBC 7.4 RBC 4.57 Hgb 12.9 Hct 40.5 MCV 88.6 MCH 28.2 MCHC 31.9 L RDW 13.1 Plt Count 223 MPV 10.5 H Immature Gran % (Auto) 0.3 Neut % (Auto) 61.1 Lymph % (Auto) 30.2 [place] % (Auto) 5.4 Eos % (Auto) 2.2 Baso % (Auto) 0.8 Lymph # (Auto) 2.22 [place] # (Auto) 0.4 Eos # (Auto) 0.2 Baso # (Auto) 0.1 Abs Immat Gran (auto) 0.02 Absolute Neuts (auto) 4.5 Absolute Nucleated RBC 0.000 Nucleated RBC % 0.0 Sodium 141 Potassium 4.1 Chloride 111 H Carbon Dioxide 21 L Anion Gap 9 BUN 19 H Creatinine 1.80 H Estim Creat Clear Calc 28 Estimated GFR 28 L Glucose 92 Calcium 9.5 ASA Classification/Sedation ASA Classification/Sedation ASA Class: II Emergent: No Risks: Risks, benefits and alternatives explained and patient/family accepted plan for sedation. Patient re-evaluated immediately prior to sedation.
[2024-12-03 11:34] VITALS: BMI 24.5
--- NOTE | 2024-12-03 11:51 | WPDCARDPROC ---
Cardiac Cath Procedure Note Date of procedure:: 12/03/24 Performing physician:: Alex Lopez MD Indication:: Chronically implanted pacemaker at [facility] Brief clinical history:: This is a 69-year-old woman with chronically implanted pacemaker for treatment of sick sinus syndrome with syncope and the device has been found to be at [facility]. She is admitted elective generator change. Procedure Procedure performed:: Explantation of depleted pacemaker pulse generator Implantation of new pacemaker pulse generator Sedation/Medication given:: Fentanyl 50 mg Versed 2 mg Case start time 11:18 a.m. Case end time 11:44 a.m. Sedation provided by Elif Malik RN, trained observer Access site:: Left anterior chest wall pocket Estimated blood loss:: Minimal Procedure note:: Patient was brought to the cardiac catheterization lab postabsorptive state placed in the supine position where the left anterior chest wall at the site of the pacemaker pocket was prepped draped in sterile fashion. A 20 cc of 1% lidocaine was infiltrated over the pocket for local anesthesia. Using the plasma blade incision was made over the pocket and electrocautery was used for cutaneous hemostasis. The pocket was then dissected using the plasma blade to the level of the fibrous capsule over the generator. Fibrous capsule was opened using the plasma blade and the Metzenbaum scissors. The chronically implanted pacemaker the attached leads were then pocket and visually unremarkable appearance. The torque wrench was then used to disconnect the leads from the pacemaker generator. The pocket was irrigated with Ancef infused saline. The new generator detailed below was connected to the the leads and the generator was wrapped in a TYREX sleeve. This is then placed into the pocket the pocket was then closed in layers using 3-0 Vicryl in an interrupted fashion with the subcutaneous tissue and 4-0 Vicryl in a running subcuticular fashion for the skin the wound was dressed with an Aquacel dressing she was taken to the holding area stable condition with no apparent procedural complications. Postop antibiotics were ordered. Findings:: The explanted device is a Medtronic dual-chamber pacemaker model VEDR0-1 serial number [id number]. Originally implanted January 18, 2011. The new pacemaker is a Medtronic dual-chamber pacemaker model W1DR01 serial number [id number]. The device is programmed in the AAIR/DDDR mode lower rate limit 60 upper rate limit 130 av delay 180/150 milliseconds. The atrial lead is a Medtronic bipolar lead model 5076-4 5 serial number [id number]. The P-wave is are sensed at 3.0 mV threshold 0.5 volts at 0.4 milliseconds impedance 361 Ohms. The ventricular lead is a Medtronic bipolar lead model 5076-5 2 serial number [id number]. R-waves are sensed at 5.0 mV threshold 0.5 volts at 0.4 milliseconds impedance 456 Ohms. Conclusion:: 1. Successful uncomplicated explantation of depleted pacemaker pulse generator 2. Successful uncomplicated implantation of new permanent dual-chamber pulse generator for ongoing treatment of sick sinus syndrome with syncope in this 69-year-old lady Alex Lopez [facility]
[2024-12-03 12:00] VITALS: BP 176/83; PULSE 60; RESP 12; O2SAT 96
[2024-12-03 12:15] VITALS: BP 169/86; PULSE 65; RESP 13; O2SAT 95
[2024-12-03 12:30] VITALS: BP 167/81; PULSE 60; RESP 12; O2SAT 95
[2024-12-03 12:45] VITALS: BP 162/84; PULSE 60; RESP 13; O2SAT 93
[2024-12-03 13:00] VITALS: BP 161/92; PULSE 63; RESP 14; O2SAT 94
== END 2024-12-03 13:06 | disposition home or self-care (01) ==
PROVIDERS: PCP Internal Medicine; Visit Provider Specialist
PROC: 0JPT0PZ Removal of Cardiac Rhythm Related Device from Trunk Subcutaneous Tissue and Fascia, Open Approach (ICD-10-PCS; CPT 33228; principal; 2024-12-03 11:00)
DX: Z45.010 Encounter for checking and testing of cardiac pacemaker pulse generator [battery] (principal); Z79.899 Other long term (current) drug therapy
CPT/HCPCS: 33228; 36415; 80048; 85025; C1785; J0690; J2003; J2250; J3010; J7040

== ENCOUNTER 2025-05-18 12:06 | Outpatient (CLI) | payer MEDICARE, SELFPAY ==
--- NOTE | ~2025-05-18 | DEXA_ITS ---
Bone Density Report Name: SPARKLE SHERMAN Age: 70 Sex: Female Ethnicity: White Date of : 1955 Indication: osteopenia; height loss; prior fracture; Referring Provider: JENNIE, JONATHAN Flores Study: Bone densitometry was performed. Exam Date: May 18, 2025 Accession number: [id number] Bone Density: Region BMD T-score Z-score Classification AP Spine(L1-L4) 0.794 -2.3 -0.1 Osteopenia Femoral Neck (Left) 0.585 -2.4 -0.5 Osteopenia Total Hip (Left) 0.594 -2.9 -1.2 Osteoporosis Femoral Neck (Right) 0.504 -3.1 -1.2 Osteoporosis Total Hip (Right) 0.581 -3.0 -1.3 Osteoporosis Total Hip Mean 0.587 -3.0 -1.3 Osteoporosis World Health Organization criteria for BMD impression classify patients as: Normal (T-score at or above -1.0), Osteopenia (T-score between -1.0 and -2.5), or Osteoporosis (T-score at or below -2.5). 10-year Fracture Risk: FRAX not reported because: Some T-score for Spine Total or Hip Total or Femoral Neck at or below -2.5 Previous Exams: -- Region Exam Age BMD T-score BMD Change BMD Change Date g/cm2 vs Baseline vs Previous -- AP Spine (L1-L4) 05/18/2025 70 0.794 -2.3 -15.6%* -3.5%* 08/29/2021 66 0.822 -2.0 -12.6%* 1.8% 09/23/2018 63 0.808 -2.2 -14.1%* -14.1%* 07/11/2011 56 0.941 -1.0 Total Hip(Left) 05/18/2025 70 0.594 -2.9 -29.1%* -15.5%* 08/29/2021 66 0.703 -2.0 -16.1%* 1.5% 09/23/2018 63 0.693 -2.0 -17.3%* -17.3%* 07/11/2011 56 0.838 -0.9 Total Hip(Right) 05/18/2025 70 0.581 -3.0 -25.3%* -11.1%* 08/29/2021 66 0.653 -2.4 -16.1%* 2.8% 09/23/2018 63 0.635 -2.5 -18.3%* -18.3%* 07/11/2011 56 0.778 -1.3 -- *Denotes significance at 95% confidence level, LSC for AP Spine = 0.022 g/cm2, LSC for Total Hip = 0.027 g/cm2 Clinical Information Provided by Patient: Has had a low trauma fracture Has used the following medications: Prolia (i.e. denosumab), Vitamin D, Calcium Patient maximum height was 67 Menopause Age: 56 No regular weight bearing exercise Does not regularly consume dairy products Drinks caffeinated beverages Onset of menses at age 11 Number of children 2 Impression: The patient has established osteoporosis, based on the Right Femoral Neck T-score and the existence of a prior fracture. The patient has risk factors, including: previous fracture. The BMD for the AP Spine (L1-L4) decreased, changing by -3.5% since the last DXA exam. The BMD for the Total Hip(Left) decreased, changing by -15.5% since the last DXA exam. The BMD for the Total Hip(Right) decreased, changing by -11.1% since the last DXA exam. Discussion: HIGH RISK OF FRACTURE. BONE DENSITY IS UNDESIRABLY LOW AT ONE OR MORE SKELETAL SITES, CONSISTENT WITH POSTMENOPAUSAL OSTEOPOROSIS. This patient's lowest T-score, in a patient who has previously fractured, meets the World Health Organization's (WHO) criteria for severe osteoporosis. In untreated patients, the risk of osteoporotic fracture increases approximately two-fold for each 1.0 SD decrease in T-score. Low bone density is not the only risk factor for fracture; also consider factors such as patient's age, frailty or poor health, risk of falling, risk of injury, previous osteoporotic fracture, family history of osteoporosis, cigarette smoking, low body weight, etc. Not everyone with low bone mineral density has osteoporosis; osteomalacia and other metabolic bone disorders should also be considered. Patients who have osteoporosis should be evaluated for specific diseases and conditions (secondary causes) that may cause or contribute to bone loss. The [place] [employer]ocrinologists (AACE) and National Osteoporosis Foundation (NOF) recommend pharmacologic intervention for all postmenopausal women whose T-score is in this range. The patient should follow a healthful lifestyle (good nutrition with adequate calcium and vitamin D, and appropriate weight-bearing exercise). Follow-Up: Consider a repeat BMD and Vertebral Fracture Assessment (VFA) exam in 2 years or sooner if medically necessary, to reassess this patient's status. Reported by: JAMAL on 05/18/2025 12:48:00 PM. Reviewed, dictated and finalized at location A.
== END 2025-05-18 12:07 | disposition home or self-care (01) ==
LOC: MICIMG 12:07
PROVIDERS: PCP Internal Medicine
DX: M85.88 Other specified disorders of bone density and structure, other site (principal); M85.852 Other specified disorders of bone density and structure, left thigh; M81.0 Age-related osteoporosis without current pathological fracture
CPT/HCPCS: 77080